=== PATIENT | male | born 1990 | race Caucasian/White ===

== ENCOUNTER → 2016-10-14 | Outpatient (CLI) | payer OTHER | END | disposition home or self-care (01) | LOC: C.RDSM 08:00 | PROVIDERS: ATTEND Physical Medicine & Rehabilitation Sports Medicine | DX: S52.134A Nondisplaced fracture of neck of right radius, initial encounter for closed fracture (principal); X58.XXXA Exposure to other specified factors, initial encounter ==

== ENCOUNTER 2020-04-18 13:13 | Observation (INO) ==
[2020-04-18 13:40] LABS: Basophils # (auto) 0.02 K/uL (0-0.2); Basophils % (auto) 0.2 %; Eosinophils # (auto) 0.02 K/uL (0-0.5); Eosinophils % (auto) 0.2 %; Hematocrit (blood only) 40.5 % (42-52); Hemoglobin 14.4 g/dL (14.0-18.0); Immature Granulocytes # (auto) 0.03 K/uL (0.00-0.02); Immature Granulocytes % (auto) 0.2 %; Lymphocytes # (auto) 1.86 K/uL (1.2-3.4); Lymphocytes % (auto) 14.2 %; Mean Corpuscular Hemoglobin 30.6 pg (25-34); Mean Corpuscular Hgb Conc 35.6 g/dL (32-36); Mean Corpuscular Volume 86.2 fL (80-100); Mean Platelet Volume 11.1 fL (7.4-10.4); Monocytes # (auto) 1.19 K/uL (0.11-0.59); Monocytes % (auto) 9.1 %; Neutrophils # (auto) 9.98 K/uL (1.4-6.5); Neutrophils % (auto) 76.1 %; Platelet Count 241 K/uL (130-400); RDW Coefficient of Variation 12.2 % (11.5-14.5); RDW Standard Deviation 38.7 fL (36.4-46.3)
[2020-04-18] MEDS ORDERED: ONDANSETRON INJ 2 MG/ML 2 ML VIAL IV STA (13:48)
[2020-04-18] MEDS ORDERED: MoRPHine SULFATE 4 MG/ML 1 ML CARP\\VIAL IV STA (13:48)
[2020-04-18] MEDS ORDERED: SODIUM CHLORIDE 0.9% 1000ML 2,000 ML IV ONE (13:48)
[2020-04-18 13:57] LABS: Albumin Level 4.1 gm/dl (3.4-5.0); BUN Creatinine Ratio 11.7 (10-20); Calcium 9.1 mg/dl (8.5-10.1); Creatinine Clr Calc Pharmacy 145.3 ml/min; Est GFR (African American) 135.5; Est GFR (Non-African American) 116.9; Potassium 3.4 mmol/L (3.5-5.1)
[2020-04-18 14:00] LABS: Albumin Globulin Ratio 1.1 (0.9-2); Bilirubin,Total 0.9 mg/dl (0.2-1); Globulin 3.9 gm/dl (2.5-4.0)
--- NOTE | 2020-04-18 14:16 | Emergency Department Note ---
Impression & Plan Abdominal pain, Acute appendicitis ED Provider Note NAME: ALCIDES MENDEZ AGE: 29 SEX: M : 1990 ARRIVES VIA: Walk-In INFORMANT: Patient ED PROVIDER(S): Adan Wilkins DO CHIEF COMPLAINT: abdominal pain HPI: Patient is a 21-year-old male who presents to the ER for right lower quadrant abdominal pain. He initially complained of epigastric abdominal pain b ut on palpation and when he pushes on his belly it is in the right lower quadrant. He admits to nausea. Eating and drinking makes it worse. Denies any chest pain or shortness of breath. No dysuria, urgency or frequency. No previous abdominal surgeries. No other exacerbating or remitting factors. ROS: See above HPI for pertinent positives & negatives. A total of 10 systems reviewed and were otherwise negative. PAST MEDICAL HISTORY:See Below PAST SURGICAL HISTORY:See Below FAMILY HISTORY:See Below SOCIAL HISTORY:See Below HOME MEDICATIONS:See Below ALLERGIES:See Below VITALS:See Below PHYSICAL EXAMINATION: GENERAL: Sitting up in bed, alert, well appearing, well nourished, no distress, non-toxic EYE EXAM: normal conjunctiva. OROPHARYNX: no exudate, no erythema, lips, buccal mucosa, and tongue normal and mucous membranes are moist NECK: supple, no nuchal rigidity, no adenopathy, non-tender LUNGS: Clear to auscultation. Normal chest wall mechanics HEART: no murmurs, S1 normal and S2 normal ABDOMEN: abdomen soft, tender palpation in right lower quadrant, normo-active bowel sounds, no masses, no rebound or guarding. UPPER EXTREMITIES: upper extremities are grossly normal. LOWER EXTREMITIES: No pitting edema. NEURO EXAM: Normal sensorium, cranial nerves II-XII grossly intact, normal speech, no gross weakness of arms, no gross weakness of legs. MEDICAL DECISION MAKING: Patient is a 29-year-old male who presents the ER for abdominal pain he comp lains of epigastric pain. On exam he is tender acutely in the right lower quadrant. Vitals were stable IV was established blood work obtained. Labs show leukocytosis of 13,000. No significant anemia. BMP with mild hypokalemia. LFTs bilirubin and lipase was unremarkable. UA was negative. Covid was negative. CT abdomen pelvis shows acute appendicitis. He was given IV cefoxitin. Discussed with general surgery and admitted and taken to the ER. Triage Nursing notes reviewed. Prior medical records reviewed Vital Signs: reviewed and remarkable for tachy Differential diagnosis: Differential diagnoses includes but is not limited to gastritis, peptic ulcer disease, GERD, gallbladder disease, pancreatitis, small bowel obstruction, acute coronary syndrome, pericarditis, ischemic bowel, irritable bowel disease, irritable bowel syndrome, appendicitis, diverticulitis, malignancy, hernia, urinary tract infection, torsion, perforation, trauma, infectious. ER treatment provided: See below Diagnostics interpreted by me: ECG: none Cardiac Monitoring: An order was placed for continuous cardiac monitoring. The monitor shows a rate of 94 with sinus rhythm. Laboratory studies: As stated above and show below. Imaging studies: CT abdomen pelvis shows acute appendicitis Consultation(s): Discussed with Myla from general surgery who evaluated and admitted the patient ED COURSE: Procedures: none Critical Care: None Past Med/Surg History Social History Smoking Status: Current some day smoker Tobacco Type: Cigarettes Feels Safe at Home: Yes Allergies Allergies Allergy/AdvReac Type Severity Reaction Status Date / Time No Known Allergies Allergy Verified 04/18/20 15:41 Home Meds Home Medications Medication Instructions Recorded Confirmed coenzyme Q10 [Co Q-10] 200 mg PO QAM 04/18/20 04/18/20 magnesium oxide 400 mg PO QAM 04/18/20 04/18/20 riboflavin (vitamin B2) 400 mg PO QAM 04/18/20 04/18/20 Results & Data (ED) Vital Signs Vital Signs - 24 hr 04/18/20 13:19 04/18/20 16:24 04/18/20 16:37 Temperature 37.0 C 36.9 C Temperature Source Skin Oral Pulse Rate 110 H Pulse Rate [Apical] 94 H Pulse Rhythm [Apical] Regular Respiratory Rate 20 18 Respiratory Effort / Characteristics Non-Labored Non-Labored Spontaneous Respiratory Depth Normal Normal Respiratory Pattern Regular Blood Pressure 134/84 Blood Pressure [Left Arm] 143/70 H Blood Pressure Mean 100 Blood Pressure Mean [Left Arm] 94 Blood Pressure Position [Left Arm] Semi-fowlers Pulse Oximetry 98 99 Oxygen Delivery Method Room Air Room Air Sepsis Recent Fever Within 48 Hours No Sepsis New/Unexplained Change in Mental Status N/A Sepsis Action Taken by Nursing No Action Required Laboratory Data Result diagrams: 04/18/20 13:30 04/18/20 13:30 Lab Results 04/18/20 04/18/20 04/18/20 Range/Units 13:30 13:30 14:10 WBC 13.10 H (4.8-10.8) K/uL RBC 4.70 (4.7-6.1) M/uL Hgb 14.4 (14.0-18.0) g/dL Hct 40.5 L (42-52) % MCV 86.2 (80-100) fL MCH 30.6 (25-34) pg MCHC 35.6 (32-36) g/dL RDW Std Deviation 38.7 (36.4-46.3) fL RDW Coeff of [place] 12.2 (11.5-14.5) % Plt Count 241 (130-400) K/uL MPV 11.1 H (7.4-10.4) fL Immature Gran % (Auto) 0.2 % Neut % (Auto) 76.1 % Lymph % (Auto) 14.2 % [place] % (Auto) 9.1 % Eos % (Auto) 0.2 % Baso % (Auto) 0.2 % Neut # (Auto) 9.98 H (1.4-6.5) K/uL Lymph # (Auto) 1.86 (1.2-3.4) K/uL [place] # (Auto) 1.19 H (0.11-0.59) K/uL Eos # (Auto) 0.02 (0-0.5) K/uL Baso # (Auto) 0.02 (0-0.2) K/uL Immature Gran # (Auto) 0.03 H (0.00-0.02) K/uL Sodium 138 (136-145) mmol/L Potassium 3.4 L (3.5-5.1) mmol/L Chloride 104 (98-107) mmol/L Carbon Dioxide 29 (21-32) mmol/L Anion Gap 5.0 (3-11) BUN 10 (7-18) mg/dl Creatinine 0.88 (0.6-1.4) mg/dl Est Cr Clr Drug Dosing 145.3 ml/min Est GFR ( Amer) 135.5 Est GFR (Non-Af Amer) 116.9 BUN/Creatinine Ratio 11.7 (10-20) Glucose 101 H (70-99) mg/dl Calcium 9.1 (8.5-10.1) mg/dl Total Bilirubin 0.9 (0.2-1) mg/dl AST 16 (15-37) U/L ALT 20 (12-78) U/L Alkaline Phosphatase 77 (45-117) U/L Total Protein 8.0 (6.4-8.2) gm/dl Albumin 4.1 (3.4-5.0) gm/dl Globulin 3.9 (2.5-4.0) gm/dl Albumin/Globulin Ratio 1.1 (0.9-2) Lipase 90 (73-393) U/L Urine Color Yellow Urine Appearance Clear (Clear) Urine pH 7.5 (4.5-7.5) Ur Specific [place] 1.016 (1.000-1.030) Urine Protein Negative (Negative) Urine Glucose (UA) Negative (Negative) Urine Ketones Negative (Negative) Urine Blood Negative (Negative) Urine Nitrite Negative (Negative) Urine Bilirubin Negative (Negative) Urine Urobilinogen Negative (Negative) Ur Leukocyte Esterase Negative (Negative) COVID-19 Eval Order SARS-CoV-2, RNA, NAAT (NEGATIVE) 04/18/20 04/18/20 Range/Units 15:52 15:52 WBC (4.8-10.8) K/uL RBC (4.7-6.1) M/uL Hgb (14.0-18.0) g/dL Hct (42-52) % MCV (80-100) fL MCH (25-34) pg MCHC (32-36) g/dL RDW Std Deviation (36.4-46.3) fL RDW Coeff of [place] (11.5-14.5) % Plt Count (130-400) K/uL MPV (7.4-10.4) fL Immature Gran % (Auto) % Neut % (Auto) % Lymph % (Auto) % [place] % (Auto) % Eos % (Auto) % Baso % (Auto) % Neut # (Auto) (1.4-6.5) K/uL Lymph # (Auto) (1.2-3.4) K/uL [place] # (Auto) (0.11-0.59) K/uL Eos # (Auto) (0-0.5) K/uL Baso # (Auto) (0-0.2) K/uL Immature Gran # (Auto) (0.00-0.02) K/uL Sodium (136-145) mmol/L Potassium (3.5-5.1) mmol/L Chloride (98-107) mmol/L Carbon Dioxide (21-32) mmol/L Anion Gap (3-11) BUN (7-18) mg/dl Creatinine (0.6-1.4) mg/dl Est Cr Clr Drug Dosing ml/min Est GFR ( Amer) Est GFR (Non-Af Amer) BUN/Creatinine Ratio (10-20) Glucose (70-99) mg/dl Calcium (8.5-10.1) mg/dl Total Bilirubin (0.2-1) mg/dl AST (15-37) U/L ALT (12-78) U/L Alkaline Phosphatase (45-117) U/L Total Protein (6.4-8.2) gm/dl Albumin (3.4-5.0) gm/dl Globulin (2.5-4.0) gm/dl Albumin/Globulin Ratio (0.9-2) Lipase (73-393) U/L Urine Color Urine Appearance (Clear) Urine pH (4.5-7.5) Ur Specific [place] (1.000-1.030) Urine Protein (Negative) Urine Glucose (UA) (Negative) Urine Ketones (Negative) Urine Blood (Negative) Urine Nitrite (Negative) Urine Bilirubin (Negative) Urine Urobilinogen (Negative) Ur Leukocyte Esterase (Negative) COVID-19 Eval Order Covid[address] [facility] SARS-CoV-2, RNA, NAAT NEGATIVE (NEGATIVE) Administered Medications Discontinued Medications Sodium Chloride (Nss 1000ml) 2,000 mls @ 999 mls/hr IV .Q2H1M ONE Stop: 04/18/20 15:48 Last Infusion: 04/18/20 16:29 Dose: 0 mls/hr Documented by: [id number] Admin: 04/18/20 14:27 Dose: 999 mls/hr Documented by: [id number] Cefoxitin Sodium (Mefoxin) 2,000 mg in 60 mls @ 100 mls/hr IV NOW STA Stop: 04/18/20 15:36 Last Admin: 04/18/20 16:04 Dose: 100 mls/hr Documented by: [id number] Ioversol (Ioversol 100ml) 93 ml IV ONCE ONE Stop: 04/18/20 14:48 Last Admin: 04/18/20 14:47 Dose: 93 ml Documented by: [id number] Morphine Sulfate (Morphine Sulfate 4 Mg/Ml 1 Ml Carp\Vial) 4 mg IV NOW STA Stop: 04/18/20 13:49 Last Admin: 04/18/20 14:27 Dose: 4 mg Documented by: [id number] Ondansetron HCl (Ondansetron Inj 2 Mg/Ml 2 Ml Vial) 4 mg IV NOW STA Stop: 04/18/20 13:49 Last Admin: 04/18/20 14:27 Dose: 4 mg Documented by: [id number] Discharge Plan Visit Data Chief Complaint: Abdominal Pain Stated Complaint: SEVERE ABD PAIN ED Provider: Adan Wilkins Discharge Problem: Abdominal pain, Acute appendicitis Patient Disposition: Being Evaluated by Surgeon Discharge Instructions Interventions: ED Discharge Assessment Last Done: 04/18/20 16:24 Discharge Problem: Abdominal pain Qualifiers: Abdominal location: unspecified location Qualified Code(s): R10.9 - Unspecified abdominal pain Acute appendicitis Qualifiers: Acute appendicitis type: with localized peritonitis Appendicitis gangrene presence: unspecified whether gangrene present Appendicitis perforation presence: unspecified whether perforation present Appendicitis abscess presence: unspecified whether abscess present Qualified Code(s): K35.30 - Acute appendicitis with localized peritonitis, without perforation or gangrene
[2020-04-18 14:36] LABS: Appearance Urine Clear (Clear); Bilirubin Urine Negative (Negative); Blood Urine Negative (Negative); Color Urine Yellow; Glucose Urine UA Negative (Negative); Ketones Urine Negative (Negative); Leukocyte Esterase Urine Negative (Negative); Nitrite Urine Negative (Negative); Protein Urine Negative (Negative); Specific Gravity Urine 1.016 (1.000-1.030); Urobilinogen Urine Negative (Negative); pH Urine 7.5 (4.5-7.5)
[2020-04-18] MEDS ORDERED: OPTIRAY 320 100ml IV ONE (14:47)
--- NOTE | 2020-04-18 14:57 | CT Scan Report ---
CT OF THE ABDOMEN AND PELVIS WITH CONTRAST CLINICAL HISTORY: Right lower quadrant abdominal pain. COMPARISON STUDY: None. TECHNIQUE: Following IV administration of 93 mL of Optiray-320, axial images of the abdomen and pelvi s were obtained from the lung bases to the proximal femurs. Images were reviewed in the axial, sagitt al, and coronal planes. IV contrast was administered without complication. Automated exposure contro l was utilized for the study. A dose lowering technique was utilized adhering to the principles of A ABIMBOLA. CT DOSE: 310.70 mGy.cm FINDINGS: Lung bases are unremarkable. No pneumatosis, free air or portal venous gas is present. The liver, spleen, adrenal glands, kidneys and pancreas are normal. There is no biliary or pancreatic maida ana lilia dilatation. There is no peripancreatic or pericholecystic infiltration. No hydronephrosis is pres ent. The appendix is dilated and fluid-filled. The appendix measures 1.3 cm in caliber. There is mode rate periappendiceal infiltration. There is no free air or abscess. Note is made of an 8 mm appendico lith. A small amount of fluid within the pelvis is noted. There is no rim-enhancing fluid collection to suggest abscess. Major vasculature is patent. IMPRESSION: Findings consistent with acute appendicitis. Fluid-filled dilated retrocecal appendix which contains an appendicolith. Moderate periappendiceal infiltration. No free air or abscess. Small amount of flui d within the pelvis. ACT 112: Negative or not required by law. Electronically signed by: Loki Bey M.D. 04/18/2020 2:55 PM
[2020-04-18] MEDS ORDERED: cefOXitin 2,000 MG/60 ML BAG IV STA (15:01)
--- NOTE | 2020-04-18 15:16 | History & Physical Report ---
Date of Service April 18, 2020 Assessment & Plan (1) Acute appendicitis: This is a 29y M with no significant PMH who presents to the [facility] ED on 04/18/20 with complaints of abdominal pain. Workup in the ED with a CT a/p revealed findings concerning for acute appendicitis, fluid-filled dilated retrocecal appendix which contains an appendicolith, moderate periappendiceal infiltration, without evidence of free air or abscess. WBC 13, patient tachycardic to 110. On examination patient ttp in the RLQ. We will plan to take the patient to the OR for a laparoscopic appendectomy. Start on preop abx and keep npo. Covid testing ordered. Dr. Mancini will obtain surgical consent. History of Present Illness Primary Care Provider: [facility] This is a 29y M with no significant PMH who presents to the [facility] ED on 04/18/20 with complaints of abdominal pain. Patient reports his pain started a couple days ago, but was generalized abdominal discomfort. He had oral surgery a little over a week ago and says he was eating his food differently and thought that was maybe the reasoning for his pain. Yesterday the patient drank some egg-nog and ended up vomiting, having chills, and abdominal bloating. He reports being up all night in pain, prompting him to come in to the ER today for further workup. A CT a/p was obtained that revealed findings consistent with acute appendicitis. WBC 13 and patient tachycardic. He reports when pressed upon his pain is located more in the RLQ. After receiving pain medication he rates his pain a 5-6/10, but without it it was about an 8/10. He states he has felt feverish but has not taken his temp and has constipation. He denies any prior abdominal surgical history. Allergies Allergy/AdvReac Type Severity Reaction Status Date / Time No Known Allergies Allergy Verified 04/18/20 15:41 Home Medications Medication Instructions Recorded Confirmed Type coenzyme Q10 [Co Q-10] 200 mg PO QAM 04/18/20 04/18/20 History magnesium oxide 400 mg PO QAM 04/18/20 04/18/20 History riboflavin (vitamin B2) 400 mg PO QAM 04/18/20 04/18/20 History Past Med/Surg History Social History Smoking Status: Current some day smoker Tobacco Type: Cigarettes Feels Safe at Home: Yes Review of Systems Constitutional: + chills feeling feverish Respiratory: no dyspnea Cardiovascular: no chest pain Gastrointestinal: + abdominal pain (generalized abd pain, RLQ ), + bloating, + nausea, + vomiting and + constipation Physical Exam Physical Exam: awake/alert Constitutional: well developed and well nourished; no acute distress Respiratory: normal respiratory effort Cardiovascular: Rate/Rhythm: + tachycardic Gastrointestinal (Abdomen): Inspection/Auscultation: + abdomen distended (mild) Percussion/Palpation: + abdomen tender (ttp RLQ, + kehrs sign) and abdomen soft Skin: no rashes, warm and dry Psychiatric: A+Ox3, euthymic affect Results & Data Results & Data ([facility]) Vital Signs (Past 12 Hours) Vital Signs Temp Pulse Resp BP Pulse Ox 04/18/20 13:19 37.0 C 110 H 20 134/[address] OF THE ABDOMEN AND PELVIS WITH CONTRAST CLINICAL HISTORY: Right lower quadrant abdominal pain. COMPARISON STUDY: None. TECHNIQUE: Following IV administration of 93 mL of Optiray-320, axial images of the abdomen and pelvis were obtained from the lung bases to the proximal femurs. Images were reviewed in the axial, sagittal, and coronal planes. IV contrast was administered without complication. Automated exposure control was utilized for the study. A dose lowering technique was utilized adhering to the principles of ALARA. CT DOSE: 310.70 mGy.cm FINDINGS: Lung bases are unremarkable. No pneumatosis, free air or portal venous gas is present. The liver, spleen, adrenal glands, kidneys and pancreas are normal. There is no biliary or pancreatic ductal dilatation. There is no peripancreatic or pericholecystic infiltration. No hydronephrosis is present. The appendix is dilated and fluid-filled. The appendix measures 1.3 cm in caliber. There is moderate periappendiceal infiltration. There is no free air or abscess. Note is made of an 8 mm appendicolith. A small amount of fluid within the pelvis is noted. There is no rim-enhancing fluid collection to suggest abscess. Major vasculature is patent. IMPRESSION: Findings consistent with acute appendicitis. Fluid-filled dilated retrocecal appendix which contains an appendicolith. Moderate periappendiceal infiltration. No free air or abscess. Small amount of fluid within the pelvis. ACT 112: Negative or not required by law. Electronically signed by: Loki Bey M.D. 04/18/2020 2:55 PM Supervising Physician Co-Signing Physician Notes I personally saw and evaluated the patient with Myla Mccullough PA-C and agree with the assessment and plan. 29 yo male with acute appendicitis -Keep NPO -IVF -To OR today for laparoscopic appendectomy, possible open -Consent obtained, risks discussed including bleeding, infection, leak, abscess PG Care Time/CCT Total # of Minutes Spent Total Time Spent with Patient: Total time spent is greater than 50% in coordination of care (as documented) at patient's floor/unit and/or counseling patient: Coding Level of Care Code 66171 OBS Care - Level 3 Diagnoses Acute appendicitis K35.80
[2020-04-18] MEDS ORDERED: NEOSTIGMINE METHYLSULFATE 5 MG/5 ML SYR ONE (15:30)
[2020-04-18] MEDS ORDERED: fentaNYL citrate 100 MCG/2 ML VIAL ONE (15:30)
[2020-04-18] MEDS ORDERED: ONDANSETRON INJ 2 MG/ML 2 ML VIAL ONE (15:30)
[2020-04-18] MEDS ORDERED: PROPOFOL IV EMULSION 10 MG/ML 20 ML VIAL IV ONE (15:30)
[2020-04-18] MEDS ORDERED: GLYCOPYRROLATE 0.2 MG/ML VIAL ONE (15:30)
[2020-04-18] MEDS ORDERED: LIDOCAINE HCL 2% 2 ML VIAL/AMP(20MG/ML) INFIL ONE (15:30)
[2020-04-18] MEDS ORDERED: MIDAZOLAM HCL 1 MG/ML 2ML VIAL ONE (15:30)
[2020-04-18] MEDS ORDERED: DEXAMETHASONE SOD INJ 4 MG/ML VIAL ONE (15:30)
[2020-04-18] MEDS ORDERED: BUPIVACAINE/EPINEPHRINE 0.5% MPF 1:200,000 30 ML VIAL ONE (15:38)
--- NOTE | 2020-04-18 16:52 | Anesthesiology Consultation ---
Date of Service April 18, 2020 Assessment & Plan Chart Review Chart Review: Acceptable Risk for Surgery Consults Requested none History Surgery Operation Date: 04/18/20 11:25 Proposed Procedures p Laparoscopic Appendectomy - Rafa Mancini DO Height/Weight Height: 6 ft 2 in Weight: 83.1 kg Allergies Allergy/AdvReac Type Severity Reaction Status Date / Time No Known Allergies Allergy Verified 04/18/20 15:41 Medications Home Medications Medication Instructions Recorded Confirmed Last Taken coenzyme Q10 [Co Q-10] 200 mg PO QAM 04/18/20 04/18/20 04/17/20 magnesium oxide 400 mg PO QAM 04/18/20 04/18/20 04/17/20 riboflavin (vitamin B2) 400 mg PO QAM 04/18/20 04/18/20 04/17/20 NPO Date Last Intake of Fluids: 04/17/20 Time Last Intake of Fluids: 21:30 Last Intake of Fluids Comment: sips of water 1330 Date Last Intake of Solids: 04/17/20 Time Last Intake of Solids: 21:00 Social History Smoking Status: Current some day smoker Physical Exam Vital Signs Last Vital Signs Temp 36.9 C 04/18/20 16:37 Pulse 94 H 04/18/20 16:37 Resp 18 04/18/20 16:37 BP 143/70 H 04/18/20 16:37 Pulse Ox 99 04/18/20 16:37 Testing Laboratory Results 04/18/20 13:30 04/18/20 13:30 Urine Color Yellow 04/18/20 14:10 Urine Appearance Clear (Clear) 04/18/20 14:10 Urine pH 7.5 (4.5-7.5) 04/18/20 14:10 Ur Specific [place] 1.016 (1.000-1.030) 04/18/20 14:10 Urine Protein Negative (Negative) 04/18/20 14:10 Urine Glucose (UA) Negative (Negative) 04/18/20 14:10 Urine Ketones Negative (Negative) 04/18/20 14:10 Urine Nitrite Negative (Negative) 04/18/20 14:10 Ur Leukocyte Esterase Negative (Negative) 04/18/20 14:10
[2020-04-18] MEDS ORDERED: PROMETHAZINE HCL 12.5 MG in SODIUM CHLORIDE 0.9% 50 ML IV PRN (16:53)
[2020-04-18] MEDS ORDERED: HYDROmorphone INJ 2 MG/ML SYR/VIAL IV PRN (16:53)
[2020-04-18] MEDS ORDERED: ePHEDrine sulfate 50 MG/ML AMP IV PRN (16:53)
[2020-04-18] MEDS ORDERED: ATROPINE SULFATE 0.1 MG/ML 10ML SYR IV PRN (16:53)
[2020-04-18] MEDS ORDERED: ONDANSETRON INJ 2 MG/ML 2 ML VIAL IV PRN ×2 (16:53→17:40)
[2020-04-18] MEDS ORDERED: fentaNYL citrate 100 MCG/2 ML VIAL IV PRN (16:53)
[2020-04-18] MEDS ORDERED: METOCLOPRAMIDE HCL INJ 5 MG/ML 2 ML VIAL IV PRN (16:53)
[2020-04-18] MEDS ORDERED: ARTIFICIAL TEARS OP OINT 3.5 GM TUBE ONE (17:03)
[2020-04-18] MEDS ORDERED: KETOROLAC 30 MG/ML VIAL ONE (17:37)
[2020-04-18] MEDS ORDERED: ROCURONIUM BROMIDE 10 MG/ML 5 ML VIAL IV ONE (17:37)
[2020-04-18] MEDS ORDERED: MoRPHine SULFATE 2 MG/ML CARP IV PRN (17:40)
[2020-04-18] MEDS ORDERED: MoRPHine SULFATE 4 MG/ML 1 ML CARP\\VIAL IV PRN (17:40)
[2020-04-18] MEDS ORDERED: oxyCODONE/ACETAMINOPHEN 5mg/325mg TAB PO PRN ×2 (17:40)
[2020-04-18] MEDS ORDERED: SODIUM CHLORIDE 0.9% 1000ML 1,000 ML IV SCH (17:45)
--- NOTE | 2020-04-18 17:56 | Post Operative Brief Note ---
PG Immediate Post Op with CF Date of Surgery April 18, 2020 Pre & Post Diagnosis Operation Date: 04/18/20 11:25 Pre-Op Diagnosis: Acute appendicitis Post-Op Diagnosis: Acute appendicitis without perforation I identified the patient and participated in the time-out.: Yes Procedure Operation Date: 04/18/20 11:25 Actual Procedures p Laparoscopic Appendectomy(Not Applicable) - Rafa Mancini DO Surgeon Rafa Mancini DO Microcomputer Technician Aristeo Verde PA-C Estimated Blood Loss 5 Findings See Below Inflamed, dilated, edematous appendix without perforation Specimens Specimen Description: A. Appendix Drains David Catheter Anesthesia Type General Complications none Disposition Disposition: Recovery Room
--- NOTE | 2020-04-18 17:59 | Operative Report ---
PG Post Operative Report Pre & Post Diagnosis Operation Date: 04/18/20 11:25 Pre-Op Diagnosis: Acute appendicitis Post-Op Diagnosis: Acute appendicitis without perforation I identified the patient and participated in the time-out.: Yes Procedure Operation Date: 04/18/20 11:25 Actual Procedures p Laparoscopic Appendectomy(Not Applicable) - Rafa Mancini DO Surgeon Rafa Mancini DO Utility Worker Production Aristeo Verde PA-C Estimated Blood Loss 5 Findings See Below Inflamed, dilated, edematous appendix with small amount of pericecal and pelvic purulent fluid Fluids see anesthesia record Specimens Appendix to pathology Drains None Anesthesia Type General Complications none Disposition Disposition: Recovery Room Indications 29 yo male with clinical and CT evidence of acute appendicitis Description of Procedure The patient was brought to the OR and placed in the supine position and SCD's placed. At this time he underwent general endotracheal anesthesia without incident. At this time a David catheter was placed under sterile conditions. His abdomen was prepped and draped in the usual sterile fashion. He was given appropriate pre-operative antibiotics. A timeout was called, the procedure was verified as Laparoscopic appendectomy, possible open. Surgical, anesthesia and nursing teams agreed and the procedure was begun. After injection of 0.25% Marcaine with epinephrine, a supraumbilical incision was made using a #11 blade scalpel and carried down to the fascia with a hemostat. The abdomen was then elevated with towel clamps and entered using the Veress needle confirming position using the saline drop test. Pneumoperitoneum was established and 5mm trocar was placed. Laparoscope was introduced. No injury was seen from our entrance to the abdomen. At this time a 5mm suprapubic port and 12mm LLQ port were placed under direct visualization. The patient was placed in Trendelenburg and rotated to the left. At this time the appendix was visualized and the appendix was freed bluntly from a retrocecal position and elevated toward the abdominal wall. The appendix appeared inflamed, dilated and edematous. A window was created in the mesoappendix at the base of the appendix. A 45mm purple load stapler was then fired across the base of the appendix which appeared healthy. The mesoappendix was then taken using Harmonic device. The appendix was then placed in an Endocatch bag and removed through the LLQ port site. Staple line was inspected and was intact. Hemostasis was complete. A small amount of purulent fluid was suctioned out of the RLQ and pelvis. The 12 mm port was then closed at the fascial level using a 0 Vicryl suture using the suture passer. All ports were removed under direct visualization and no bleeding was noted. The abdomen was desufflated and the skin was closed using 4-0 Monocryl in a subcuticular fashion. Sterile dressings were applied. David catheter was removed. The patient was then awakened from anesthesia having remained stable throughout the entire case and transported to PACU. All needle and sponge counts were correct x 2. The physician's real estate assistant was present and scrubbed for the entirety of the case. He was critical in positioning the patient, prepping and draping, retraction and exposure, driving the laparoscope, closure of the incisions and placement of the dressings. I attest to the content of the Intraoperative Record and any orders documented therein. Any exceptions are noted below.
[2020-04-18] MEDS ORDERED: MEPERIDINE HCL 25 MG/ML CARP/VIAL ONE (18:02)
[2020-04-18] MEDS ORDERED: MEPERIDINE HCL 25 MG/ML CARP/VIAL IV ONE (18:07)
--- NOTE | 2020-04-18 18:27 | Anesthesiology Progress Note ---
Date of Service April 18, 2020 Anesthesia Post Procedure Vital Signs Vital Signs: Temp Pulse Pulse Resp BP BP Pulse Ox 04/18/20 18:20 97 H 18 146/75 H 100 04/18/20 18:10 100 H 14 152/81 H 100 04/18/20 18:01 36.8 C 112 H 21 155/75 H 98 04/18/20 16:37 36.9 C 94 H 18 143/70 H 99 04/18/20 13:19 37.0 C 110 H 20 134/84 98 Transfer of Care Handoff Completed per policy Notes Mental Status: alert / awake / arousable and participated in evaluation Patient Amnestic to Procedure: Yes Nausea / Vomiting: adequately controlled Pain: adequately controlled Airway Patency, RR, SpO2: stable & adequate BP & HR: stable & adequate Hydration State: stable & adequate Anesthetic Complications: no major complications apparent
[2020-04-19] MEDS ORDERED: COUGH DROP (SUGAR FREE) LOZ 24 LOZ/1 BOX BUCCAL PRN (00:14)
--- NOTE | 2020-04-19 06:15 | Surgery Progress Note ---
Date of Service April 19, 2020 Assessment & Plan (1) Acute appendicitis: -Pain control PRN -Encourage ambulation/IS -No need for antibiotics -Regular diet -Can change LLQ dressing prior to discharge -Will d/c home this morning when transportation becomes available Admission and Anticipated Discharge Date Admission Date: April 18, 2020 Subjective Pt seen and examined. Pain controlled. Afebrile. Tolerating diet. Physical Exam Constitutional: WD/WN, vitals as above Gastrointestinal (Abdomen): Percussion/Palpation: + abdomen tender (appropriately ) and abdomen soft Dressing LLQ with sanguinous spotting, no hematoma Results [facility] ([facility] Vital Signs (Past 12 Hours) Vital Signs Temp Pulse Pulse Resp BP Pulse Ox 04/19/20 03:37 37.1 C 80 16 114/65 95 04/18/20 23:17 36.3 C L 78 16 126/74 96 04/18/20 22:59 36.2 C L 78 16 126/76 95 04/18/20 21:49 36.8 C 89 16 127/73 94 04/18/20 20:28 36.9 C 89 16 149/78 H 94 04/18/20 20:00 36.8 C 82 16 125/71 94 04/18/20 19:30 37.3 C 90 16 137/67 94 04/18/20 19:10 96 H 20 138/72 97 04/18/20 19:00 98 H 20 138/72 97 04/18/20 18:50 88 12 141/73 H 96 04/18/20 18:40 37.6 C H 94 H 17 135/70 95 04/18/20 18:30 93 H 18 146/72 H 94 04/18/20 18:20 97 H 18 146/75 H 100 PG Care Time/CCT Total # of Minutes Spent Total Time Spent with Patient: Total time spent is greater than 50% in coordination of care (as documented) at patient's floor/unit and/or counseling patient: Coding Level of Care Code None Diagnoses Acute appendicitis K35.30 Acute appendicitis type: with localized peritonitis Appendicitis abscess presence: unspecified whether abscess present Appendicitis gangrene presence: unspecified whether gangrene present Appendicitis perforation presence: unspecified whether perforation present (1) Acute appendicitis Acute appendicitis type: with localized peritonitis Appendicitis abscess presence: unspecified whether abscess present Appendicitis gangrene presence: unspecified whether gangrene present Appendicitis perforation presence: unspecified whether perforation present Qualified Code(s): K35.30 - Acute appendicitis with localized peritonitis, without perforation or gangrene
--- NOTE | 2020-04-20 10:18 | Discharge Summary ---
Date of Service April 20, 2020 Admission HPI Per Admitting Provider This is a 29y M with no significant PMH who presents to the [facility] on 04/18/20 with complaints of abdominal pain. Patient reports his pain started a couple days ago, but was generalized abdominal discomfort. He had oral surgery a little over a week ago and says he was eating his food differently and thought that was maybe the reasoning for his pain. Yesterday the patient drank some egg-nog and ended up vomiting, having chills, and abdominal bloating. He reports being up all night in pain, prompting him to come in to the ER today for further workup. A CT a/p was obtained that revealed findings consistent with acute appendicitis. WBC 13 and patient tachycardic. He reports when pressed upon his pain is located more in the RLQ. After receiving pain medication he rates his pain a 5-6/10, but without it it was about an 8/10. He states he has felt feverish but has not taken his temp and has constipation. He denies any prior abdominal surgical history. Principal Diagnosis Acute appendicitis Discharge Exam Constitutional WD/WN, vitals as above Gastrointestinal (Abdomen) Inspection/Auscultation: abdomen not distended Percussion/Palpation: + abdomen tender (appropriately TTP) and abdomen soft; no guarding and abdomen not rigid Discharge Data Allergies Allergy/AdvReac Type Severity Reaction Status Date / Time No Known Allergies Allergy Verified 04/18/20 15:41 Consultations 04/18/20 15:00 ED Decision to Admit Stat Procedures Performed Operation Date: 04/18/20 11:25 Actual Procedures p Laparoscopic Appendectomy(Not Applicable) - Rafa Mancini DO Ordered Studies 04/18/20 13:48 CT abd pelvis IV con only Stat Hospital Course (1) Acute appendicitis: Patient was admitted with acute appendicitis. He was given appropriate IV ABX and then taken to the OR for laparoscopic appendectomy which he tolerated well. Post-operatively he was tolerating a diet, ambulating without difficulty, and pain controlled on PO medications and stable for discharge home. Total Time Total Time Spent Total Time Spent (In Minutes): 20 Discharge Plan Discharge Items Patient Disposition: Home - Self-Care Reason For Visit: APPENDECTOMY Discharge Diagnosis: appendectomy Activity: As commented below Lifting: No more than 10 pounds Bathing Comment: can shower; no soaking in tubs/pools Exercise/Sports: Wait until after follow-up appointment Driving/Machine Use: do not resume driving while taking narcotics for pain Non-emergency contact: Surgeon Call non-emergency contact if: you have any medication questions, you have a fever, your temperature is above 101.5 and your wound has increased redness Follow-up/Referrals: Rafa Mancini, [Physician] - 05/02/20 3:00 pm [facility] [Primary Care Provider] - Diet: Regular Addtl Attending Provider Instructions: Pending Studies at Discharge: No Stand-Alone Forms: Anesthesia/Sedation, Adult, [facility], Opioid Pain Management Medications and DC Order Prescriptions: New oxycodone-acetaminophen [Percocet] 5-325 mg tablet 1 - 2 tab PO Q4H PRN (Reason: pain, initial therapy, max 6 daily) Qty: 15 RF: 0 Continued coenzyme Q10 [Co Q-10] 200 mg Capsule 200 mg PO QAM RF: 0 magnesium oxide 400 mg magnesium Capsule 400 mg PO QAM RF: 0 riboflavin (vitamin B2) 400 mg Tablet 400 mg PO QAM RF: 0 Discharge Orders: Discharge Order (Routine); Ordered 04/19/20 Ordered By: Myla Duran/Other Patient Handouts: DVT Post Op Prevention Admission Data Admit Date/Time: 04/18/20 19:05 Attending Provider: Rafa Mancini Admit Provider: Rafa Mancini Primary Care Provider: [facility] Other Providers: Myla Mccullough Other Interventions: Discharge Summary Assessment (RN) Last Done: 04/19/20 08:36 Coding Level of Care Code 00043 OBS Care - Discharge Diagnoses Acute appendicitis K35.30 Acute appendicitis type: with localized peritonitis Appendicitis abscess presence: unspecified whether abscess present Appendicitis gangrene presence: unspecified whether gangrene present Appendicitis perforation presence: unspecified whether perforation present
== END 2020-04-19 13:29 | disposition home or self-care (01) ==
LOC: ED 13:13 → ASU 16:21 → 3N 16:21

== ENCOUNTER 2021-10-26 11:27 | Inpatient (IN) ==
--- NOTE | 2021-10-26 11:46 | CT Scan Report ---
CT head/brain wo con CLINICAL HISTORY: 31 years-old Male with Stroke Alert. Acute strokelike symptoms TECHNIQUE: Multiple axial CT images of the head were obtained without contrast. A dose lowering tech nique was utilized adhering to the principles of ALARA. CT DOSE: 614.27 mGy.cm COMPARISON: None. FINDINGS: No acute intracranial hemorrhage, midline shift, intracranial mass, hydrocephalus, territorial ischem ia or abnormal extra-axial collection. The calvarium is intact. The paranasal sinuses, mastoid air cells, and middle ear cavities are clear . IMPRESSION: No acute intracranial abnormality. ACT 112: Negative or not required by law. The above report was generated using voice recognition software. It may contain grammatical, syntax o r spelling errors. Electronically signed by: Margarito Valentino M.D. 10/26/2021 11:45 AM
[2021-10-26] MEDS ORDERED: GLUCOSE 40% GEL 15 GM TUBE PO STA (11:50)
[2021-10-26] MEDS ORDERED: GLUCOSE 40% GEL 15 GM TUBE PO ONE (11:51)
--- NOTE | 2021-10-26 12:04 | Emergency Department Note ---
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 The patient states that he was in the kitchen at approximately 10:30 AM today. He started to feel lightheaded and felt weak, incoordinated and numb on the right side of his body. He lowered himself down to the ground and ate a fig beatty cookie. He did not have anything to eat prior to that. He crawled over to his and told her his symptoms. She assisted him to the bed and took his blood pressure which appeared to be normal. He continues to have symptoms. He is able to walk but he is limping. He has had no difficulty with his vision, speech or mentation. He is right-hand dominant. He has no left-sided symptoms. He denies any recent fever, headache, cough or cold symptoms, chest discomfort or pain, shortness of breath, abdominal pain, vomiting, diarrhea or urinary symptoms. He is not on any blood thinners other than aspirin. Home Medications Medication Instructions Recorded Confirmed Type amoxicillin 500 mg capsule 2,000 mg PO .COMPLEX #30 cap 09/09/20 10/26/21 Rx aspirin 81 mg tablet,delayed 81 mg PO QAM 10/18/20 10/26/21 History release metoprolol succinate 50 mg 25 mg PO QAM 01/30/21 10/26/21 History tablet,extended release 24 hr cholestyramine (with sugar) 4 gram 4 g PO DAILY #60 ea 07/22/21 10/26/21 Rx powder for susp in a packet Allergies Allergy/AdvReac Type Severity Reaction Status Date / Time No Known Allergies Allergy Verified 07/22/21 15:46 Past Med/Surg History Medical History Anxiety Astigmatism of left eye Irritable bowel syndrome Migraine Mitral regurgitation Mitral valve prolapse Nonsustained ventricular tachycardia Scoliosis Surgical History History of laparoscopic appendectomy (04/18/20) Laparoscopic Appendectomy Dr. Mancini 04/18/2020 History of mandibular surgery "upper jaw expanded" History of transesophageal echocardiography (DENY) (~06/08/20) History of wisdom tooth extraction S/P mitral valve repair (~08/2020) @ [facility]--follows with Dr. 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 and A total of 10 systems reviewed and were otherwise negative Physical Exam Vital Signs Vital Signs - 24 hr 10/26/21 11:32 10/26/21 11:45 10/26/21 12:17 Temperature 36.8 C Temperature Source Temporal Artery Scan Pulse Rate 87 Pulse Rate [Apical] 89 Respiratory Rate 16 18 Respiratory Depth Normal Blood Pressure 133/84 Blood Pressure [Left Arm] 147/80 H Blood Pressure Mean 100 Blood Pressure Mean [Left Arm] 102 Pulse Oximetry 97 98 Oxygen Delivery Method Room Air Room Air Room Air Sepsis Recent Fever Within 48 Hours No Sepsis New/Unexplained Change in Mental Status No Sepsis Action Taken by Nursing No Action Required 10/26/21 12:47 Temperature Temperature Source Pulse Rate Pulse Rate [Apical] 82 Respiratory Rate 18 Respiratory Depth Blood Pressure Blood Pressure [Left Arm] 138/94 Blood Pressure Mean Blood Pressure Mean [Left Arm] 108 Pulse Oximetry 100 Oxygen Delivery Method Room Air Sepsis Recent Fever Within 48 Hours Sepsis New/Unexplained Change in Mental Status Sepsis Action Taken by Nursing Constitutional: Vital signs reviewed. Eyes: Pupils are equal round reactive to light. Conjunctiva are noninjected. ENT: Pharynx is clear without erythema or exudate. Mucous membranes are moist. Neck supple without meningeal signs. Respiratory: Clear to auscultation bilaterally. Breath sounds are equal bila terally. Cardiovascular: Regular rate and rhythm. No rubs or gallops. GI: Soft, nondistended and nontender. Bowel sounds are present. Musculoskeletal: No peripheral edema. No lower extremity tenderness. Integumentary: No cyanosis. or jaundice. Neurologic: The patient is awake and alert. Cranial nerves II-XII are intact with dysesthesia to the face but not the scalp. Motor is 5 out of 5 all extremities. He is, however, stronger on the left side. Sensation is intact to light touch all extremities with dysesthesia to the right arm normal speech. No pronator drift. No limb ataxia. Gait favoring the right lower extremity. Psychiatric: Normal affect. Not anxious appearing. Course Administered Medications Discontinued Medications Glucose (Glucose 40% Gel 15 Gm Tube) 15 gm PO NOW STA Stop: 10/26/21 11:51 Last Admin: 10/26/21 11:55 Dose: 15 gm Documented by: [id number] Glucose (Glucose 40% Gel 15 Gm Tube) Confirm Administered Dose 15 gm PO .STK-MED ONE Stop: 10/26/21 11:52 Last Admin: 10/26/21 11:56 Dose: Not Given Documented by: [id number] Tenecteplase 22 mg/ Syringe 4.4 mls @ 52.8 mls/min IV NOW ONE; Protocol Stop: 10/26/21 12:46 Last Admin: 10/26/21 12:44 Dose: 52.8 mls/min Documented by: [id number] Cosigned by: [id number] Ioversol (Optiray 320 125ml) 120 ml IV ONCE ONE Stop: 10/26/21 12:11 Last Admin: 10/26/21 12:10 Dose: 120 ml Documented by: [id number] Sodium Chloride (Sodium Chloride 0.9% 10ml Flush) 20 ml IV NOW STA Stop: 10/26/21 12:36 Last Admin: 10/26/21 12:49 Dose: 20 ml Documented by: [id number] Critical Care Time Critical Care Time: Yes Total Critical Care Time: 45 I have personally spent approximately 45 minutes of critical care time in the direct management of this patient. This includes bedside care, interpretation of diagnostic studies, and testing, discussion with consultants, patient, and family members, and other required patient management activities. These minutes are in excess of all separately billable procedures. Medical Decision Making Differential Diagnosis CVA, TIA, intracranial hemorrhage, intracranial bleed, metabolic derangement, hypoglycemia Medical Records Attestation: I reviewed the patient's medical records. I did perform a limited focused review of portions of the patient's old chart on the electronic medical record. The patient has had no recent pertinent visits to this hospital. Home Medications Current Medication List: was personally reviewed by me Laboratory Data Result diagrams: 10/26/21 11:43 10/26/21 11:43 Lab Results 10/26/21 10/26/21 10/26/21 Range/Units 11:43 11:43 11:43 WBC 4.93 (4.8-10.8) K/uL RBC 5.13 (4.7-6.1) M/uL Hgb 16.3 (14.0-18.0) g/dL POC Hgb (14.0-18.0) g/dl Hct 45.0 (42-52) % POC Hct (42-52) % MCV 87.7 (80-100) fL MCH 31.8 (25-34) pg MCHC 36.2 H (32-36) g/dL RDW Std Deviation 39.2 (36.4-46.3) fL RDW Coeff of Geovanni 12.2 (11.5-14.5) % Plt Count 222 (130-400) K/uL MPV 11.6 H (7.4-10.4) fL PT 10.9 (9.0-12.0) Seconds INR 1.0 (0.9-1.1) APTT 26.9 (21.0-31.0) Seconds PTT Ratio 1.0 POC Sodium (135-144) mmol/L Sodium 140 (136-145) mmol/L POC Potassium (3.3-5.0) mmol/L Potassium 3.9 (3.5-5.1) mmol/L POC Chloride (101-112) mmol/L Chloride 105 (98-107) mmol/L Carbon Dioxide 29 (21-32) mmol/L POC Total CO2 (24-31) mmol/L Anion Gap 6 (3-11) POC Anion Gap (16-25) mmol/L POC BUN (7-18) mg/dl BUN 13 (6-23) mg/dl Creatinine 0.99 (0.6-1.4) mg/dl POC Creatinine (0.6-1.3) mg/dl Est Cr Clr Drug Dosing 130.4 ml/min Est GFR ( Amer) 118.0 ml/min Est GFR (Non-Af Amer) 101.8 ml/min BUN/Creatinine Ratio 13.1 (10-20) Glucose 60 L (70-99(Fasting)) mg/dl POC Glucose (70-99) mg/dl POC Glucose (other) (70-99) mg/dl Calcium 9.8 (8.5-10.1) mg/dl POC Ioniz Calcium Meli (1.12-1.32) mmol/l Magnesium 2.1 (1.7-2.4) mg/dl Total Bilirubin 0.9 (0.2-1.0) mg/dl AST 22 (13-39) U/L ALT 23 (7-52) U/L Alkaline Phosphatase 77 (34-104) U/L Total Protein 7.6 (6.0-8.3) gm/dl Albumin 4.6 (3.4-5.0) gm/dl Globulin 3.0 (2.5-4.0) gm/dl Albumin/Globulin Ratio 1.5 (0.9-2) SARS-CoV-2, RNA, NAAT (NEGATIVE) 10/26/21 10/26/21 10/26/21 Range/Units 11:48 11:51 11:59 WBC (4.8-10.8) K/uL RBC (4.7-6.1) M/uL Hgb (14.0-18.0) g/dL POC Hgb 15.3 (14.0-18.0) g/dl Hct (42-52) % POC Hct 45 (42-52) % MCV (80-100) fL MCH (25-34) pg MCHC (32-36) g/dL RDW Std Deviation (36.4-46.3) fL RDW Coeff of Geovanni (11.5-14.5) % Plt Count (130-400) K/uL MPV (7.4-10.4) fL PT (9.0-12.0) Seconds INR (0.9-1.1) APTT (21.0-31.0) Seconds PTT Ratio POC Sodium 142 (135-144) mmol/L Sodium (136-145) mmol/L POC Potassium 4.5 (3.3-5.0) mmol/L Potassium (3.5-5.1) mmol/L POC Chloride 103 (101-112) mmol/L Chloride (98-107) mmol/L Carbon Dioxide (21-32) mmol/L POC Total CO2 28 (24-31) mmol/L Anion Gap (3-11) POC Anion Gap 17.0 (16-25) mmol/L POC BUN 13 (7-18) mg/dl BUN (6-23) mg/dl Creatinine (0.6-1.4) mg/dl POC Creatinine 1.0 (0.6-1.3) mg/dl Est Cr Clr Drug Dosing ml/min Est GFR ( Amer) ml/min Est GFR (Non-Af Amer) ml/min BUN/Creatinine Ratio (10-20) Glucose (70-99(Fasting)) mg/dl POC Glucose 64 L* 82 (70-99) mg/dl POC Glucose (other) 69 L* (70-99) mg/dl Calcium (8.5-10.1) mg/dl POC Ioniz Calcium Meli 1.34 H (1.12-1.32) mmol/l Magnesium (1.7-2.4) mg/dl Total Bilirubin (0.2-1.0) mg/dl AST (13-39) U/L ALT (7-52) U/L Alkaline Phosphatase (34-104) U/L Total Protein (6.0-8.3) gm/dl Albumin (3.4-5.0) gm/dl Globulin (2.5-4.0) gm/dl Albumin/Globulin Ratio (0.9-2) SARS-CoV-2, RNA, NAAT (NEGATIVE) 10/26/21 10/26/21 Range/Units 12:47 12:50 WBC (4.8-10.8) K/uL RBC (4.7-6.1) M/uL Hgb (14.0-18.0) g/dL POC Hgb (14.0-18.0) g/dl Hct (42-52) % POC Hct (42-52) % MCV (80-100) fL MCH (25-34) pg MCHC (32-36) g/dL RDW Std Deviation (36.4-46.3) fL RDW Coeff of Geovanni (11.5-14.5) % Plt Count (130-400) K/uL MPV (7.4-10.4) fL PT (9.0-12.0) Seconds INR (0.9-1.1) APTT (21.0-31.0) Seconds PTT Ratio POC Sodium (135-144) mmol/L Sodium (136-145) mmol/L POC Potassium (3.3-5.0) mmol/L Potassium (3.5-5.1) mmol/L POC Chloride (101-112) mmol/L Chloride (98-107) mmol/L Carbon Dioxide (21-32) mmol/L POC Total CO2 (24-31) mmol/L Anion Gap (3-11) POC Anion Gap (16-25) mmol/L POC BUN (7-18) mg/dl BUN (6-23) mg/dl Creatinine (0.6-1.4) mg/dl POC Creatinine (0.6-1.3) mg/dl Est Cr Clr Drug Dosing ml/min Est GFR ( Amer) ml/min Est GFR (Non-Af Amer) ml/min BUN/Creatinine Ratio (10-20) Glucose (70-99(Fasting)) mg/dl POC Glucose 92 (70-99) mg/dl POC Glucose (other) (70-99) mg/dl Calcium (8.5-10.1) mg/dl POC Ioniz Calcium Meli (1.12-1.32) mmol/l Magnesium (1.7-2.4) mg/dl Total Bilirubin (0.2-1.0) mg/dl AST (13-39) U/L ALT (7-52) U/L Alkaline Phosphatase (34-104) U/L Total Protein (6.0-8.3) gm/dl Albumin (3.4-5.0) gm/dl Globulin (2.5-4.0) gm/dl Albumin/Globulin Ratio (0.9-2) SARS-CoV-2, RNA, NAAT NEGATIVE (NEGATIVE) Imaging Data Radiologist's Impression: Head CT 10/26/21 11:36 CT head/brain wo con CLINICAL HISTORY: 31 years-old Male with Stroke Alert. Acute strokelike symptoms TECHNIQUE: Multiple axial CT images of the head were obtained without contrast. A dose lowering technique was utilized adhering to the principles of ALARA. CT DOSE: 614.27 mGy.cm COMPARISON: None. FINDINGS: No acute intracranial hemorrhage, midline shift, intracranial mass, hydroceph alus, territorial ischemia or abnormal extra-axial collection. The calvarium is intact. The paranasal sinuses, mastoid air cells, and middle ear cavities are clear. IMPRESSION: No acute intracranial abnormality. ACT 112: Negative or not required by law. The above report was generated using voice recognition software. It may contain grammatical, syntax or spelling errors. Electronically signed by: Margarito Valentino M.D. 10/26/2021 11:45 AM Head CTA 10/26/21 11:51 CT angio neck with con, CT angio head w con CLINICAL HISTORY: 31 years-old Male with Stroke Like Symptoms. Acute strokelike symptoms COMPARISON STUDY: Head CT of same day at 11:38 AM TECHNIQUE: Following the IV administration of 120 mL of Optiray, CT angiogram of the head and neck was performed from the aortic arch to the skull apex. Images are reviewed in the axial, sagittal, and coronal planes. 3-D MIPS images are created and assessed. IV contrast was administered without complication. All measurements were calculated based on NASCET criteria. A dose lowering technique was utilized adhering to the principles of ALARA. CT DOSE: 516.11 mGy.cm FINDINGS: Three-vessel morphology of the thoracic aortic arch. There is patency of the innominate and imaged subclavian arteries. Normal and widely patent common and internal carotid arteries. The middle and anterior cerebral arteries are patent. Dominant left vertebral artery. The bilateral vertebral arteries are widely patent. The basilar and posterior cerebral arteries are patent. The ce rebral venous sinuses are patent. There is no abnormal intracranial enhancement. Lung apices are clear. Residual thymic tissue of the anterior mediastinum. Calcifications of the palatine tonsils. Straightening of the normal cervical lordosis without acute fracture. IMPRESSION:Unremarkable CTA of the head and neck. ACT 112: Negative or not required by law. The above report was generated using voice recognition software. It may contain grammatical, syntax or spelling errors. Electronically signed by: Margarito Valentino M.D. 10/26/2021 12:37 PM Neck CTA 10/26/21 11:51 CT angio neck with con, CT angio head w con CLINICAL HISTORY: 31 years-old Male with Stroke Like Symptoms. Acute strokelike symptoms COMPARISON STUDY: Head CT of same day at 11:38 AM TECHNIQUE: Following the IV administration of 120 mL of Optiray, CT angiogram of the head and neck was performed from the aortic arch to the skull apex. Images are reviewed in the axial, sagittal, and coronal planes. 3-D MIPS images are created and assessed. IV contrast was administered without complication. All measurements were calculated based on NASCET criteria. A dose lowering technique was utilized adhering to the principles of ALARA. CT DOSE: 516.11 mGy.cm FINDINGS: Three-vessel morphology of the thoracic aortic arch. There is patency of the innominate and imaged subclavian arteries. Normal and widely patent common and internal carotid arteries. The middle and anterior cerebral arteries are patent. Dominant left vertebral artery. The bilateral vertebral arteries are widely patent. The basilar and posterior cerebral arteries are patent. The cerebral venous sinuses are patent. There is no abnormal intracranial enhancement. Lung apices are clear. Residual thymic tissue of the anterior mediastinum. Ca lcifications of the palatine tonsils. Straightening of the normal cervical lordosis without acute fracture. IMPRESSION:Unremarkable CTA of the head and neck. ACT 112: Negative or not required by law. The above report was generated using voice recognition software. It may contain grammatical, syntax or spelling errors. Electronically signed by: Margarito Valentino M.D. 10/26/2021 12:37 PM Brain MRI 10/26/21 12:52 MR brain wo/w con HISTORY: 31 years-old Male right sided weakness/numbness/incoordination acute strokelike symptoms with right-sided weakness COMPARISON: CT head, CTA head and neck studies of same day TECHNIQUE: Multiplanar multisequence MRI of the brain was obtained both with and without the use of 8.5 cc Gadavist FINDINGS: There is a 1.5 cm ovoid focus of restricted diffusion within the left thalamus on image 13 series 5 which demonstrates normal T2/FLAIR signal. No additional restricted diffusion identified. The midline structures appear unremarkable. No acute intracranial hemorrhage, midline shift, abnormal extra axial collection, hydrocephalus or intracranial mass. No pathologic blooming artifact. No significant T2/flair signal abnormalities identified within the brain parenchyma. There are a few punctate foci of T2/FLAIR prolongation within the subcortical white matter, likely of no clinical significance. No abnormal enhancement. The cerebral venous sinuses and major arterial flow voids appear patent. Skull, orbits and soft tissues are unremarkable. IMPRESSION: 1. 1.5 cm acute left thalamic infarct. 2. No acute intracranial hemorrhage. 3. No abnormal enhancement. ACT 112: Negative or not required by law. The above report was generated using voice recognition software. It may contain grammatical, syntax or spelling errors. Electronically signed by: Margarito Valentino M.D. 10/26/2021 2:49 PM ECG Data Attestation: I personally reviewed and interpreted this ECG as follows: Indication: + other (Stroke symptoms) Rate (beats per minute): 90 Rhythm: + normal sinus ECG [place]: + Normal ECG ST segments: no ST elevation ECG Findings: + Q waves Comparison ECG Date: from (September 04, 2020) Change: no significant change Thrombolytics MDM Did the patient receive IV thrombolytics?: Yes Was there any delay in administration?: No MDM Narrative I did evaluate the patient as noted above. He is presenting with strokelike symptoms starting at 10:30 AM today. A stroke alert was called from triage. A CT of the head was ordered from triage. I did review the images myself as well as the radiology report. There is no acute process. On examination he has noticeable weakness in the right side of his body. He has difficulty walking and lack of coordination of his right sided limbs. He has difficulty writing. He also has dysesthesia to the right arm and face. His blood sugar was 64 taken from a venous sample. I did immediately give him oral glucose 15 g p.o. IV a ccess was established. I did place an order for continuous cardiac monitoring. The monitor showed normal sinus rhythm at a rate of 77 bpm. I did order and personally review the patient's 12-lead EKG as described above. Some Q waves are noted. He denies having any chest pain or shortness of breath. No dysrhythmias noted. I did discuss the case with with Dr. Licona of [facility]. I did discuss possible administration of thrombolytics with the patient and his . I did order a CT angiogram of the head and neck. I did review the images myself as well as the radiology report as described above.no acute abnormality was noted. When the patient came back from CT scan he had no resolution of his symptoms. I Did order and review the patient's blood work as noted in the electronic medical record. CBC and CMP are unremarkable except for a blood sugar of 60. The patient was evaluated by Dr. Hannah of stroke neurology. We both discussed risks and benefits of medication with the patient and his . He does state that he has occasional rectal bleeding due to internal hemorrhoids. He did have a colonoscopy which did not show any other pathology. He was warned that he could develop worsening bleeding from his internal hemorrhoids. After weighing the risks and benefits he and his decided to go ahead with treatment with thrombolytics. I did discuss with the patient and his that IV tenecteplase is off label for use and ischemic stroke but that it is widely used at this hospital as well as at [facility]. I did repeat a blood sugar which was 92. He has no resolution of his symptoms and so I did order IV tenecteplase which was admini stered by the nurse. I did reevaluated multiple times and he had no change in his symptoms. He did not report any headaches. I did order an MRI of the brain which later showed a left thalamic infarct. I did discuss case with the hospitalist and case work aide. Impression & Plan Infarction of left thalamus, Hypoglycemia Discharge Plan Visit Data Chief Complaint: Stroke Alert Stated Complaint: NUMB ON ENTIRE RIGHT SIDE ED Provider: Michael Conley Discharge Problem: Infarction of left thalamus, Hypoglycemia Patient Disposition: Admitted As Inpatient Discharge Instructions Interventions: ED Discharge Assessment Last Done: 10/26/21 14:31
[2021-10-26] MEDS ORDERED: OPTIRAY 320 125ml IV ONE (12:10)
[2021-10-26 12:16] LABS: iSTAT Hemoglobin 15.3 g/dl (14.0-18.0); iSTAT Ionized Calcium 1.34 mmol/l (1.12-1.32); iSTAT Potassium 4.5 mmol/L (3.3-5.0)
[2021-10-26 12:21] LABS: Hemoglobin 16.3 g/dL (14.0-18.0); Mean Corpuscular Hemoglobin 31.8 pg (25-34); Mean Corpuscular Hgb Conc 36.2 g/dL (32-36); Mean Corpuscular Volume 87.7 fL (80-100); Mean Platelet Volume 11.6 fL (7.4-10.4); Platelet Count 222 K/uL (130-400); RDW Coefficient of Variation 12.2 % (11.5-14.5); RDW Standard Deviation 39.2 fL (36.4-46.3); Red Blood Count 5.13 M/uL (4.7-6.1); White Blood Count 4.93 K/uL (4.8-10.8)
[2021-10-26 12:29] LABS: Partial Thromboplastin Time 26.9 Seconds (21.0-31.0); Prothrombin Time 10.9 Seconds (9.0-12.0)
[2021-10-26] MEDS ORDERED: SODIUM CHLORIDE 0.9% 10ML FLUSH IV STA (12:35)
[2021-10-26] MEDS ORDERED: STAT IV STA (12:35)
--- NOTE | 2021-10-26 12:39 | CT Scan Report ---
CT angio neck with con, CT angio head w con CLINICAL HISTORY: 31 years-old Male with Stroke Like Symptoms. Acute strokelike symptoms COMPARISON STUDY: Head CT of same day at 11:38 AM TECHNIQUE: Following the IV administration of 120 mL of Optiray, CT angiogram of the head and neck wa s performed from the aortic arch to the skull apex. Images are reviewed in the axial, sagittal, and c oronal planes. 3-D MIPS images are created and assessed. IV contrast was administered without complic ation. All measurements were calculated based on NASCET criteria. A dose lowering technique was util ized adhering to the principles of ALARA. CT DOSE: 516.11 mGy.cm FINDINGS: Three-vessel morphology of the thoracic aortic arch. There is patency of the innominate and imaged subclavian arteries. Normal and widely patent common and internal carotid arteries. The middl e and anterior cerebral arteries are patent. Dominant left vertebral artery. The bilateral vertebral arteries are widely patent. The basilar and posterior cerebral arteries are patent. The cerebral veno us sinuses are patent. There is no abnormal intracranial enhancement. Lung apices are clear. Residual thymic tissue of the anterior mediastinum. Calcifications of the [place] tonsils. Straightening of the normal cervical lordosis without acute fracture. IMPRESSION:Unremarkable CTA of the head and neck. ACT 112: Negative or not required by law. The above report was generated using voice recognition software. It may contain grammatical, syntax o r spelling errors. Electronically signed by: Margarito Valentino M.D. 10/26/2021 12:37 PM
[2021-10-26 12:43] LABS: Albumin Globulin Ratio 1.5 (0.9-2); Albumin Level 4.6 gm/dl (3.4-5.0); BUN Creatinine Ratio 13.1 (10-20); Bilirubin,Total 0.9 mg/dl (0.2-1.0); Calcium 9.8 mg/dl (8.5-10.1); Creatinine Clr Calc Pharmacy 130.4 ml/min; Est GFR (Non-African American) 101.8 ml/min; Magnesium 2.1 mg/dl (1.7-2.4); Potassium 3.9 mmol/L (3.5-5.1); Total Protein 7.6 gm/dl (6.0-8.3)
[2021-10-26] MEDS ORDERED: No Aspirin within 24hrs of THROMBOLYTIC-Stroke PO SCH (12:45)
[2021-10-26] MEDS ORDERED: TENECTEPLASE 22 MG in SYRINGE 0 ML IV ONE (12:45)
--- NOTE | 2021-10-26 13:04 | History & Physical Report ---
Date of Service October 26, 2021 Assessment & Plan (1) CVA (cerebral vascular accident): Plan: Presumed left-sided CVA with diffuse right-sided numbness and dyscoordination. No macrovascular occlusions on CTA head/neck. Stroke neurologist consulted in the ER -> TNK pushed at 12:45pm. - MRI brain pending - Telemetry - Restart ASA after 24 hours post-TNK - CT head at 24 hours to ensure no intracranial bleeding - Start statin - Echo w/ bubble study ordered - Neurology consulted - PT/OT consulted; CREDIT RISK MODELER evaluation deferred as patient and feel speech and swallow are both at baseline - A1c, lipids (2) Lightheadedness: Plan: Many episodes of lightheadedness and occasional syncope after his surgery. Had been improving, but had 3 episodes in the last 1 1/2 weeks per . Thought to be in part due to medications. - Continue lowered beta-michael dose (25 mg) - Monitor vitals and HR while admitted (3) S/P mitral valve repair: Plan: Mitral valve repair with annulopasty and Neochords on 08/09/[address] Luke Sánchez at [facility]. - Hold ASA for 24 hours as above - Continue beta-michael (4) Irritable bowel syndrome with diarrhea: Plan: Rarely uses his Questran per patient. - Continue home Questran PRN (5) DVT prophylaxis: Plan: SCDs - Hold heparin for 24 hours after TNK History of Present Illness Primary Care Provider: [facility] 31yo M w/ hx of mitral valve repair at [facility] in 08/2020 for mitral valve prolapse complicated with severe mitral regurgitation who presents with acute, right-sided CVA. Last known well at 10:30am when he was in the kitchen. He reports his right arm went numb, and he just felt like it was "asleep." However, the sensation spread to his right leg as well, and he felt very dizzy and as if he was about to pass out. He fell to the ground (no striking head and no LoC) and crawled to the bedroom to alert his . They wait some time to see if it would pass, but eventually came to the ER. He denies any chest pain, palpitations, n/v, shortness of breath, changes in speech, or other symptoms. Since his surgery, he has had episodes of seemingly vasovagal events where he gets dizzy and lightheaded and his has to assist him back to bed. He has lost consciousness at least once during these episodes. They were more common right after his mitral valve repair, but his reports he has had 3 in the last week and half which is an increase. He has recently had his metoprolol adjusted downward as it was thought medication might be playing a role. Allergies Allergy/AdvReac Type Severity Reaction Status Date / Time No Known Allergies Allergy Verified 07/22/21 15:46 Home Medications Medication Instructions Recorded Confirmed Type amoxicillin 500 mg capsule 2,000 mg PO .COMPLEX #30 cap 09/09/20 07/22/21 Rx aspirin 81 mg tablet,delayed 81 mg PO QAM 10/18/20 07/22/21 History release metoprolol succinate 50 mg 50 mg PO QPM 01/30/21 07/22/21 History tablet,extended release 24 hr cholestyramine (with sugar) 4 gram 4 g PO DAILY #60 ea 07/22/21 07/22/21 Rx powder for susp in a packet Past Med/Surg History Medical History Anxiety Astigmatism of left eye Irritable bowel syndrome Migraine Mitral regurgitation Mitral valve prolapse Nonsustained ventricular tachycardia Scoliosis Surgical History History of laparoscopic appendectomy (04/18/20) Laparoscopic Appendectomy Dr. Mancini 04/18/2020 History of mandibular surgery "upper jaw expanded" History of transesophageal echocardiography (DENY) (~06/08/20) History of wisdom tooth extraction S/P mitral valve repair (~08/2020) @ [facility]--follows with Dr. 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 Feels Safe at Home: Yes Assistive Devices: Glasses Review of Systems Review of Systems: All systems reviewed & are unremarkable except as noted in HPI & below Physical Exam Constitutional: WD/WN, vitals as above Eyes: EOM intact bilaterally; no conjunctival abnormality ENMT: external ear and nose normal, oropharynx normal Neck: trachea midline, no thyromegaly normal visual inspection Respiratory: normal respiratory effort, lungs clear to auscultation no respiratory distress Cardiovascular: RRR, no murmur, no edema Gastrointestinal (Abdomen): Inspection/Auscultation: abdomen normal to inspection; abdomen not distended Musculoskeletal: no cyanosis or clubbing, extremities motor strength 5/5 Skin: no rashes, warm and dry Neurologic: moves all extremities and awake Motor/Sensory: + sensory deficit (Reduced light touch sensation on right side) Coordination: + abnormal tewfzb-rq-elug test (Worse on right than left) and + abnormal bbim-ij-bxwk test (Worse on right than left) Psychiatric: Orientation: alert, oriented to person and cooperative Results & Data Results & Data ([facility] [place]) Vital Signs (Past 12 Hours) Vital Signs Temp Pulse Pulse Resp BP BP Pulse Ox 10/26/21 12:47 82 18 138/94 100 10/26/21 12:17 89 18 147/80 H 98 10/26/21 11:32 36.8 C 87 16 133/84 97 Code Status & VTE Plan VTE Prophylaxis Plan VTE Prophylaxis will be ordered: Yes PG Care Time/CCT Total # of Minutes Spent Total Time Spent with Patient: Total time spent is greater than 50% in coordination of care (as documented) at patient's floor/unit and/or counseling patient: Coding Level of Care Code 46716 Initial Inpt Care Lvl 3 Diagnoses CVA (cerebral vascular accident) I63.9 S/P mitral valve repair Z98.890 Irritable bowel syndrome with diarrhea K58.0 Lightheadedness R42 DVT prophylaxis Z29.9
--- NOTE | 2021-10-26 14:51 | Magnetic Resonance Report ---
MR brain wo/w con HISTORY: 31 years-old Male right sided weakness/numbness/incoordination acute strokelike symptoms wi th right-sided weakness COMPARISON: CT head, CTA head and neck studies of same day TECHNIQUE: Multiplanar multisequence MRI of the brain was obtained both with and without the use of 8 .5 cc Gadavist FINDINGS: There is a 1.5 cm ovoid focus of restricted diffusion within the left thalamus on image 13 series 5 w hich demonstrates normal T2/FLAIR signal. No additional restricted diffusion identified. The midline structures appear unremarkable. No acute intracranial hemorrhage, midline shift, abnormal extra axial collection, hydrocephalus or in tracranial mass. No pathologic blooming artifact. No significant T2/flair signal abnormalities identi fied within the brain parenchyma. There are a few punctate foci of T2/FLAIR prolongation within the s ubcortical white matter, likely of no clinical significance. No abnormal enhancement. The cerebral venous sinuses and major arterial flow voids appear patent. Skull, orbits and soft tissu es are unremarkable. IMPRESSION: 1. 1.5 cm acute left thalamic infarct. 2. No acute intracranial hemorrhage. 3. No abnormal enhancement. ACT 112: Negative or not required by law. The above report was generated using voice recognition software. It may contain grammatical, syntax o r spelling errors. Electronically signed by: Margarito Valentino M.D. 10/26/2021 2:49 PM
--- NOTE | 2021-10-26 15:32 | Critical Care Consultation ---
Date of Consultation October 26, 2021 Assessment & Plan (1) CVA (cerebral vascular accident): (2) S/P mitral valve repair: 31-year-old male with a past medical history of mitral valve surgery, irritable bowel syndrome and allergic rhinitis presenting to the hospital due to an acute stroke he was found to have a left thalamic infarct. He is status post TNKase. Continue TNKase protocol. We will obtain a CT head in 24 hours. Monitor neurochecks frequently. Maintain head of the bed elevated. Maintain euglycemia. Await neurology input. Echo to be obtained tomorrow. ? Embolic event from mitral valve. May need more extensive work-up such as DENY and MRA/MRV of the head and neck. We will continue to monitor patient in the intensive care unit. Thank you for allowing us to participate in the care of the patient. History of Present Illness Reason for Consultation: Stroke status post TNKase History of Present Illness 89-year-old male with history of mitral valve repair at the [facility] in August 2020 for mitral valve prolapse and regurgitation who presented to the ER due to numbness in his right arm around 10:30 AM. The sensation then moved to his leg and he felt dizzy. He came to the ER and underwent stroke protocol. CT head was negative for acute events. Patient ultimately received TNKase at 12:45 PM. MRI of his brain was completed and suggested a 1.5 cm acute left thalamic infarct. No intracranial hemorrhage. He is currently in the ICU with some improvement in symptoms. He remains hemodynamically stable. He still has some residual weakness in his right hand. He denies any headache. He denies chest pain or shortness of breath. He also notes some mild tingling and numbness in his right leg. Allergies Allergy/AdvReac Type Severity Reaction Status Date / Time No Known Allergies Allergy Verified 07/22/21 15:46 Home Medications Medication Instructions Recorded Confirmed Type amoxicillin 500 mg capsule 2,000 mg PO .COMPLEX #30 cap 09/09/20 10/26/21 Rx aspirin 81 mg tablet,delayed 81 mg PO QAM 10/18/20 10/26/21 History release metoprolol succinate 50 mg 25 mg PO QAM 01/30/21 10/26/21 History tablet,extended release 24 hr cholestyramine (with sugar) 4 gram 4 g PO DAILY #60 ea 07/22/21 10/26/21 Rx powder for susp in a packet Patient History Medical History Anxiety Astigmatism of left eye Irritable bowel syndrome Migraine Mitral regurgitation Mitral valve prolapse Nonsustained ventricular tachycardia Scoliosis Surgical History History of laparoscopic appendectomy (04/18/20) Laparoscopic Appendectomy Dr. Mancini 04/18/2020 History of mandibular surgery "upper jaw expanded" History of transesophageal echocardiography (DENY) (~06/08/20) History of wisdom tooth extraction S/P mitral valve repair (~08/2020) @ [facility]--follows with Dr. 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 Patient is in no apparent distress. Patient is well-developed. Eyes: Pupils are equal round and reactive to light. Conjunctivae are normal. Anicteric sclera. Ears nose, mouth and throat: Deferred. Neck: Trachea is midline. Visual inspection is normal. Respiratory: Clear to auscultation bilaterally. No use of accessory muscles. No significant clubbing noted. Cardiovascular: Regular rate and rhythm. No murmurs. No edema. Gastrointestinal: Normal bowel sounds, soft, nontender and nondistended. No hepatosplenomegaly noted. Musculoskeletal: No cyanosis. Patient is able to move all extremities. Skin: No rashes, warm dry and intact. Neurologic: Weakness in his right upper and right lower extremity. Psychiatric: Alert and oriented x3 with a euthymic affect. Results & Data Results & Data ([facility]) Vital Signs (Past 12 Hours) Vital Signs Temp Pulse Pulse Resp BP BP Pulse Ox 10/26/21 14:31 83 20 134/92 97 10/26/21 14:17 36.9 C 87 19 142/73 H 98 10/26/21 13:32 36.6 C 89 20 141/91 H 99 10/26/21 13:17 90 21 135/88 99 10/26/21 13:02 82 19 134/80 100 10/26/21 12:47 82 18 138/94 100 10/26/21 12:17 89 18 147/80 H 98 10/26/21 11:32 36.8 C 87 16 133/84 97 Coding Level of Care Code 07965 Inpt Consult Level 4 Diagnoses CVA (cerebral vascular accident) I63.9 S/P mitral valve repair Z98.890
[2021-10-26] MEDS ORDERED: ONDANSETRON INJ 2 MG/ML 2 ML VIAL IV PRN (16:07)
[2021-10-26] MEDS ORDERED: METOPROLOL SUCC 50MG EXT REL TAB PO SCH (21:00)
[2021-10-26] MEDS: ATORVASTATIN 40 MG TAB PO SCH (21:11)
[2021-10-26] MEDS: ACETAMINOPHEN 325 MG TAB PO PRN (22:55)
--- NOTE | 2021-10-26 23:03 | Communication Note ---
Date of Service: October 26, 2021 2245: Informed by nursing staff that patient is now complaining of a generalized headache w/p TNKase. Assessed patient at bedside. He is awake, alert, and o riented. He communicates his complaints well. He describes a generalized headache that he estimates started 90 minutes ago. He does report a history of frequent headaches in the past but reports that this one "feels different." Other than the complaint of general pain, he denies any new or recurrent symptoms of weakness, numbness, vision changes, or slurring of speech. He has no focal exam findings at this time. Order placed for STAT CT head/brain w/o contrast. He will receive PO Tylenol per previous orders. Review of CT imaging demonstrates no ICU or other acute findings. Discussed with patient at bedside. I have personally spent 20 minutes of critical care time in the direct management of this patient. This is a life/limb threatening event. This includes time spent evaluating patient, direct bedside care, chart review, placing orders, interpretation of diagnostic studies, discussion with consultants, patient, and family members, as well as other required patient management activities. This time is exclusive of all separately billable procedures, and teaching time and separate from and in addition to any other critical care service time. Coding Level of Care Code Critical Care ramon hellert'l 30 min Time Spent (min) 20
[2021-10-27 05:42] LABS: Hemoglobin 15.2 g/dL (14.0-18.0); Mean Corpuscular Hemoglobin 31.1 pg (25-34); Mean Corpuscular Hgb Conc 35.3 g/dL (32-36); Mean Corpuscular Volume 88.1 fL (80-100); Mean Platelet Volume 11.5 fL (7.4-10.4); Platelet Count 237 K/uL (130-400); RDW Coefficient of Variation 12.1 % (11.5-14.5); RDW Standard Deviation 38.7 fL (36.4-46.3); Red Blood Count 4.88 M/uL (4.7-6.1); White Blood Count 7.03 K/uL (4.8-10.8)
[2021-10-27 05:50] LABS: BUN Creatinine Ratio 13.9 (10-20); Calcium 9.2 mg/dl (8.5-10.1); Chol HDL Ratio 3.8 (0-5); Creatinine Clr Calc Pharmacy 127.8 ml/min; Est GFR (African American) 115.1 ml/min; Est GFR (Non-African American) 99.3 ml/min; Magnesium 2.1 mg/dl (1.7-2.4); Phosphorus 5.4 mg/dl (2.5-4.9); Potassium 3.8 mmol/L (3.5-5.1)
--- NOTE | 2021-10-27 08:48 | CT Scan Report ---
CT head/brain wo con CLINICAL HISTORY: mattson s/p TPA Technique: Contiguous axial CT images of the head were acquired from the base of the skull to the maida renzo without intravenous contrast administration. Images were viewed in brain, [facility]. Automated dose lowering techniques and/or adjustment according to patient size were utilized for this exam. Comparison: Comparison is made to CTA head 10/26/2021 Findings: The ventricles, basal cisterns, and cerebral sulci are normal. There is no acute intracranial hemorrh age or evidence of acute territorial infarction. Neither mass effect, shift of the midline structures , nor abnormal extra-axial fluid collections are shown. Imaged portions of the paranasal sinuses and mastoid air cells are clear. The orbits appear normal. There are no acute fractures of the calvaria or scalp swelling. Impression: No acute intracranial hemorrhage, no evidence of acute territorial infarction or other acute intracra nial disease process. ACT 112: Negative or not required by law. Electronically signed by: Bennett Davis M.D. 10/27/2021 8:47 AM
[2021-10-27] MEDS: METOPROLOL SUCC 25MG EXT REL TAB PO SCH (09:03)
[2021-10-27] MEDS: ACETAMINOPHEN 325 MG TAB PO PRN ×2 (09:03→22:39)
--- NOTE | 2021-10-27 09:55 | Critical Care Progress Note ---
Date of Service October 27, 2021 Assessment & Plan (1) CVA (cerebral vascular accident): (2) S/P mitral valve repair: Plan: 31-year-old male with a past medical history of mitral valve surgery, irritable bowel syndrome and allergic rhinitis presenting to the hospital due to an acute stroke he was found to have a left thalamic infarct. He is status post TNKase. Continue TNKase protocol. We will obtain a CT head this afternoon. If negative, can downgrade to med telemetry. Monitor neurochecks frequently. Maintain head of the bed elevated. Maintain euglycemia. Await neurology input. Echo to be obtained tomorrow. ? Embolic event from mitral valve. May need more extensive work-up such as DENY and MRA/MRV of the head and neck. PT/OT consults. Thank you for allowing us to participate in the care of the patient. Admission and Anticipated Discharge Date Admission Date: October 26, 2021 Subjective Patient with residual. Strength appears to be intact. He notes that he is having difficulty with writing with his right hand as he is right-hand dominant. He did have a headache last night and underwent a CT of his head which was n egative for acute findings. Review of Systems Review of Systems: All systems reviewed & are unremarkable except as noted in HPI & below Physical Exam Physical Exam: Constitutional: Patient appears to be of their stated age. Patient is in no apparent distress. Patient is well-developed. Eyes: Pupils are equal round and reactive to light. Conjunctivae are normal. Anicteric sclera. Ears nose, mouth and throat: Deferred. Neck: Trachea is midline. Visual inspection is normal. Respiratory: Clear to auscultation bilaterally. No use of accessory muscles. No significant clubbing noted. Cardiovascular: Regular rate and rhythm. No murmurs. No edema. Gastrointestinal: Normal bowel sounds, soft, nontender and nondistended. No hepatosplenomegaly noted. Musculoskeletal: No cyanosis. Patient is able to move all extremities. Skin: No rashes, warm dry and intact. Neurologic: No dysmetria seen. Strength 5 out of 5 in the upper and lower extremities. Decreased sensation of this right upper and right lower extremity. Psychiatric: Alert and oriented x3 with a euthymic affect. Results & Data Results & Data ([facility]) Vital Signs (Past 12 Hours) Vital Signs Temp Pulse Pulse Resp BP Pulse Ox 10/27/21 08:47 80 19 119/79 97 10/27/21 07:47 36.5 C 76 18 122/78 98 10/27/21 06:47 68 16 111/63 98 10/27/21 05:47 63 14 124/71 98 10/27/21 04:47 36.6 C 65 15 112/68 98 10/27/21 03:47 65 15 120/67 98 10/27/21 02:47 66 16 121/64 95 10/27/21 01:47 76 13 122/71 96 10/27/21 00:47 72 18 118/80 96 10/27/21 00:00 75 10/26/21 23:47 78 18 112/85 99 10/26/21 23:00 37.2 C 76 16 124/81 99 10/26/21 22:47 76 16 124/81 99 Coding Level of Care Code 37056 Subseq Hosp Care Lvl 2 Diagnoses CVA (cerebral vascular accident) I63.9 S/P mitral valve repair Z98.890
--- NOTE | 2021-10-27 10:15 | XCELERA ---
[id number]
--- NOTE | 2021-10-27 12:38 | CT Scan Report ---
CT head/brain wo con CLINICAL HISTORY: 24 h s/p TPA Technique: Contiguous axial CT images of the head were acquired from the base of the skull to the maida renzo without intravenous contrast administration. Images were viewed in brain, subdural and bone [facility]. Automated dose lowering techniques and/or adjustment according to patient size were utilized for this exam. Comparison: Comparison is made to CT head 10/26/2021 Findings: The ventricles, basal cisterns, and cerebral sulci are normal. There is no acute intracranial hemorrh age or evidence of acute territorial infarction. Neither mass effect, shift of the midline structures , nor abnormal extra-axial fluid collections are shown. Imaged portions of the paranasal sinuses and mastoid air cells are clear. The orbits appear normal. There are no acute fractures of the calvaria or scalp swelling. Impression: No acute abnormality, in particular no evidence of hemorrhage. ACT 112: Negative or not required by law. Electronically signed by: Bennett Davis M.D. 10/27/2021 12:37 PM
--- NOTE | 2021-10-27 14:32 | Hospitalist Progress Note ---
Date of Service October 27, 2021 Assessment & Plan (1) CVA (cerebral vascular accident): Plan: Presumed left-sided CVA with diffuse right-sided numbness and dyscoordination. No macrovascular occlusions on CTA head/neck. Stroke neurologist consulted in the ER -> TNK pushed at 12:45pm. - MRI brain showed 1.5 cm left thalamic stroke. - Telemetry w/o arrythmia so far. - Restart ASA after 24 hours post-TNK - CT head at 24 hours with no intracranial bleeding - Started statin - Echo w/ bubble study showed no interatrial shunt. Some shadowing around annuloplasty ring. -> Discussed with cardiology and cardiothoracic surgery from [facility] -> Plan to perform DENY tomorrow to better assess this area. - Neurology consulted - PT/OT consulted; STORE CUSTODIAN evaluation deferred as patient and feel speech and swallow are both at baseline - A1c pending - Lipids with LDL > 100 (2) Lightheadedness: Plan: Many episodes of lightheadedness and occasional syncope after his surgery. Had been improving, but had 3 episodes in the last 1 1/2 weeks per . Thought to be in part due to medications. - Continue lowered beta-michael dose (25 mg) - Monitor vitals and HR while admitted (3) S/P mitral valve repair: Plan: Mitral valve repair with annulopasty and Neochords on 08/09/[address] Luke Sánchez at [facility]. - Hold ASA for 24 hours as above - Continue beta-michael - Now sees Dr. Valeriy Pedroza (route delivery service driver) - Awaiting a call. (4) Irritable bowel syndrome with diarrhea: Plan: Rarely uses his Questran per patient. - Continue home Questran PRN (5) DVT prophylaxis: Plan: SCDs - Hold heparin for 24 hours after TNK Admission and Anticipated Discharge Date Admission Date: October 26, 2021 Subjective Doing well today. Headache from overnight is improving. Feels his deficits are improving as well. Reports no fevers/chills, chest pain, shortness of breath, abdominal pain, nausea, or vomiting. Physical Exam Constitutional: WD/WN, vitals as above Eyes: EOM intact bilaterally; no conjunctival abnormality ENMT: external ear and nose normal, oropharynx normal Neck: trachea midline, no thyromegaly normal visual inspection Respiratory: normal respiratory effort, lungs clear to auscultation no respiratory distress Cardiovascular: RRR, no murmur, no edema Gastrointestinal (Abdomen): Inspection/Auscultation: abdomen normal to inspection; abdomen not distended Musculoskeletal: no cyanosis or clubbing, extremities motor strength 5/5 Skin: no rashes, warm and dry Neurologic: moves all extremities and awake Motor/Sensory: + sensory deficit (Reduced light touch sensation on right side) Coordination: + abnormal tefang-rt-citm test (Worse on right than left) and + abnormal lcky-zz-fing test (Worse on right than left) Psychiatric: Orientation: alert, oriented to person and cooperative Results & Data Results & Data ([facility]) Vital Signs (Past 12 Hours) Vital Signs Temp Pulse Pulse Resp BP Pulse Ox 10/27/21 12:47 79 20 99/75 L 99 10/27/21 11:47 36.6 C 90 21 126/83 97 10/27/21 10:47 73 18 126/80 99 10/27/21 09:47 77 17 116/81 100 10/27/21 08:47 80 19 119/79 97 10/27/21 07:47 36.5 C 76 18 122/78 98 10/27/21 07:10 77 10/27/21 06:47 68 16 111/63 98 10/27/21 05:47 63 14 124/71 98 10/27/21 04:47 36.6 C 65 15 112/68 98 10/27/21 03:47 65 15 120/67 98 10/27/21 02:47 66 16 121/64 95 PG Care Time/CCT Total # of Minutes Spent Total Time Spent with Patient: Total time spent is greater than 50% in coordination of care (as documented) at patient's floor/unit and/or counseling patient: Coding Level of Care Code 30452 Subseq Hosp Care Lvl 3 Diagnoses CVA (cerebral vascular accident) I63.9 Lightheadedness R42 S/P mitral valve repair Z98.890 Irritable bowel syndrome with diarrhea K58.0 DVT prophylaxis Z29.9
--- NOTE | 2021-10-27 19:46 | Electrocardiogram Report ---
Test Reason : Blood Pressure : / mmHG Vent. Rate : 090 BPM Atrial Rate : 090 BPM P-R Int : 164 ms QRS Dur : 102 ms QT Int : 354 ms P-R-T Axes : 053 056 063 degrees QTc Int : 433 ms Poor data quality, interpretation may be adversely affected Normal sinus rhythm Anteroseptal infarct , age undetermined Abnormal ECG No previous ECGs available Confirmed by Corona Fofana ([id number]) on 10/27/2021 7:46:12 PM Referred By: Confirmed By:Corona Fofana
[2021-10-27] MEDS: ATORVASTATIN 40 MG TAB PO SCH (22:18)
[2021-10-28 07:39] LABS: Estimated Average Glucose 91 mg/dl; Hemoglobin A1C 4.8 % (4.5-5.6)
--- NOTE | 2021-10-28 08:31 | Neurology Consultation ---
Date of Consultation October 28, 2021 Assessment & Plan (1) Infarction of left thalamus: (2) S/P mitral valve repair: 31-year-old male presenting with an acute ischemic 1.5 cm left thalamic infarct characterized by right-sided numbness and weakness, considerably improved after administration of TNKase. No prior history of stroke, TIA, or thromboembolic disease. However, patient does have a history of mitral valve repair at the [facility] last August. He did inform me that he has been experiencing occasional lightheaded episodes ever since this procedure and he has been following with [facility] cardiology and underwent a 30-day monitor last November that was negative for complex ventricular arrhythmia but did reveal PVCs and occasional PACs. He has no other stroke risk factors such as hypertension, hyperlipidemia or diabetes. He is a non-smoker. He does have a history of occasional migraine although he has never had a complicated migraine episode and his current presentation is not consistent with his typical migrainous events, which are again rare. In looking into the issue further, small percentage of patients who undergo mitral valve repair may experience atrial fibrillation. It is possible that he may be experiencing episodes of A. fib increasing his risk of cardioembolic stroke. Patient scheduled for transesophageal echocardiogram. Should proceed with this test. Would also recommend hypercoagulable lab evaluation. Would also recommend completion of up-to-date 30-day mobile cardiac outpatient telemetry. May also need to consider an implantable loop recorder, should follow-up with cardiology regarding his recommendations as well. Would also recommend switching patient's antiplatelet regimen from daily low- dose aspirin to clopidogrel 75 mg/day and less of an indication for an anticoagulant such as atrial fibrillation is identified. Patient's neurologic deficits appear to be extremely minimal this morning, I doubt he will require inpatient rehabilitation. Going forward, in light of his history of recent left thalamic stroke, I would need to recommend that he avoid further use of triptans for acute migraine treatment. 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 He is right-handed. He complained of difficulty with handwriting as well as some difficulty with standing and walking. He also experienced a low-grade headache. No vision disturbance. No significant speech difficulty. Again, his symptoms were fairly sudden onset and were persistent. Patient did have a telestroke consultation with a specialist at [facility], and given his clinical presentation and initial imaging evaluation, he was administered TNKase for suspected left hemispheric stroke. Past medical history notable for surgical repair mitral valve prolapse and regurgitation at the [facility] August 09, 2020. He has been following with [facility] cardiology recently, Dr. Panda. Patient does inform me that ever since undergoing this surgical repair, he has been experiencing brief episodes of lightheadedness. He did a 30-day event monitor last November which found frequent PVCs and occasional PACs, no complex ventricular arrhythmia. He has been on daily low-dose aspirin. He is also prescribed metoprolol. He endorses a history of rare migraine, current symptoms are quite different from his typical migraines, however. He has used Imitrex in the past, but none recently. This morning, he endorses a subtle feeling of weakness affecting the right arm and leg, no speech difficulty, no change in swallowing. He admits that he feels nearly normal. Allergies Allergy/AdvReac Type Severity Reaction Status Date / Time No Known Allergies Allergy Verified 07/22/21 15:46 Home Medications Medication Instructions Recorded Confirmed Type amoxicillin 500 mg capsule 2,000 mg PO .COMPLEX #30 cap 09/09/20 10/26/21 Rx aspirin 81 mg tablet,delayed 81 mg PO QAM 10/18/20 10/26/21 History release metoprolol succinate 50 mg 25 mg PO QAM 01/30/21 10/26/21 History tablet,extended release 24 hr cholestyramine (with sugar) 4 gram 4 g PO DAILY #60 ea 07/22/21 10/26/21 Rx powder for susp in a packet Patient History Medical History Anxiety Astigmatism of left eye Irritable bowel syndrome Migraine Mitral regurgitation Mitral valve prolapse Nonsustained ventricular tachycardia Scoliosis Surgical History History of laparoscopic appendectomy (04/18/20) Laparoscopic Appendectomy Dr. Mancini 04/18/2020 History of mandibular surgery "upper jaw expanded" History of transesophageal echocardiography (DENY) (~06/08/20) History of wisdom tooth extraction S/P mitral valve repair (~08/2020) @ [facility]--follows with Dr. 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 Feels Safe at Home: Yes Assistive Devices: None Review of Systems Constitutional: no fever and no chills Eyes: no blind spots and no diplopia Ear, Nose, Mouth, Throat: no ear pain and no hearing loss Respiratory: no cough and no dyspnea Cardiovascular: no chest pain and no palpitations Gastrointestinal: no constipation and no diarrhea/loose stools Genitourinary: no urinary incontinence or no urinary urgency Musculoskeletal: no muscle weakness and no muscle atrophy Integumentary: no rash and no lesions Neurologic: as per Subjective / HPI Psychiatric: no behavioral changes, no depression, no abnormal sleep pattern and no anxiety Hematologic / Lymphatic: no easy bruising and no lymphadenopathy Exam (Neuro) Constitutional: well developed and well nourished; no acute distress Eyes: normal visual poon by confrontation, PERRL, normal accommodation and EOM intact bilaterally; no fundoscopic abnormality, no nystagmus and no papilledema Cardiovascular: Vessels: normal carotid upstroke; no carotid bruit Neurologic: Oriented to:: Person, Place and Time Memory: Short Term Intact and Remote Intact Attention: Span Intact and Concentration Intact Language: Naming Objects and Repeating Phrases Speech Fluency: negative Dysarthria Speech Aphasia: negative Aphasia Fund of Knowledge: Current Events, Past History and Vocabulary Cranial Nerves: Normal II (Visual poon full to confrontation, visual acuity normal), III, IV, (Pupils equal round reactive to light and accommodation, eye movements normal), VII (There is no facial droop or weakness), VIII (Hearing intact), IX, X (Palate elevates to midline), XI (Shoulder shrug intact) and XII (Tongue protrudes to midline); Abnorm V (Subtle difference in facial sensation comparing left to right.) Motor Strength: Normal Lower Extremities and Normal Upper Extremities; negative Pronator Drift Motor Tone: Normal Lower Extremities and Normal Upper Extremities Muscle Bulk/Involuntary Movements: No Involuntary Movements; negative Muscle Atrophy Sensation: Light Touch Intact, Pain/Temperature Intact, Vibration Intact and Proprioception Intact Coordination: Normal and Heel-Azul Abnormal Laterality: Right; negative Limited Balance, Dysdiadochokinesia or Finger-Nose Abnormal Deep Tendon Reflexes: Rt Triceps: 2+, Lt Triceps: 2+, Rt Biceps: 2+, Lt Biceps: 2+, Rt Brachioradialis: 2+, Lt Brachioradialis: 2+, Rt Patellar: 2+, Lt Patellar: 2+, Rt Ankle: 2+ and Lt A nkle: 2+ Special Tests: negative Babinski Present Details: Gait not tested in the context of patient's current neurological status. Results & Data ([facility]) Vital Signs (Past 12 Hours) Vital Signs Temp Pulse Resp BP Pulse Ox 10/28/21 06:43 36.7 C 81 18 104/67 97 10/28/21 06:30 72 10/28/21 06:09 77 10/28/21 02:51 36.7 C 90 18 100/60 96 Laboratory Results WBC 7.03, hemoglobin 15.2, hematocrit 43.0, MCV 88.1, platelet count 237, sodium 138, potassium 3.8, BUN 14, creatinine 1.01, glucose 89, hemoglobin A1c 4.8, calcium 9.2, magnesium 2.1, triglycerides 99, cholesterol 175, LDL 109, VLDL 20, HDL [address] angiography of the head and neck completed at the time of presentation were unremarkable. Follow-up brain MRI revealed a 1.5 cm acute left thalamic infarct, no hemorrhage, no abnormal enhancement. I reviewed the images as well as the radiologist's interpretation of this test and agree. Patient had 2 additional follow-up head CT's, no evidence of hemorrhage, status post administration of TNKase. Electrocardiogram revealed a normal sinus rhythm, anteroseptal infarct, age undetermined, 90 bpm. An echocardiogram completed yesterday was negative for cardioembolic source, normal left ventricular systolic function, no interatrial shunt with injection of contrast, no specific abnormality of the mitral valve noted, trace mitral regurgitation. Left atrium normal size. Coding Level of Care Code 77545 Initial In Care Lvl 3 Diagnoses Infarction of left thalamus I63.9 S/P mitral valve repair Z98.890
[2021-10-28] MEDS: METOPROLOL SUCC 25MG EXT REL TAB PO SCH (08:57)
[2021-10-28] MEDS ORDERED: ASPIRIN 81 MG ECTAB PO SCH (09:00)
[2021-10-28] MEDS ORDERED: PROPOFOL IV EMULSION 10 MG/ML 20 ML VIAL IV ONE (12:24)
--- NOTE | 2021-10-28 12:26 | Anesthesiology Consultation ---
Date of Service October 28, 2021 Assessment & Plan (1) Encounter for pre-operative examination: Chart Review Chart Review: Acceptable Risk for Surgery and Patient NOT seen in Pre Admission Testing Consults Requested none History Surgery Operation Date: 10/28/21 12:30 Proposed Procedures p Transesophageal Echo w/Anesthesia - Nishant Brody MD Height/Weight Height: 6 ft 3 in Weight: 85.2 kg Allergies Allergy/AdvReac Type Severity Reaction Status Date / Time No Known Allergies Allergy Verified 07/22/21 15:46 Medications Home Medications Medication Instructions Recorded Confirmed Last Taken amoxicillin 500 mg capsule 2,000 mg PO .COMPLEX #30 cap 09/09/20 10/26/21 02/05/21 aspirin 81 mg tablet,delayed 81 mg PO QAM 10/18/20 10/26/21 10/26/21 08:00 release metoprolol succinate 50 mg 25 mg PO QAM 01/30/21 10/26/21 10/26/21 08:00 tablet,extended release 24 hr cholestyramine (with sugar) 4 gram 4 g PO DAILY #60 ea 07/22/21 10/26/21 Unknown powder for susp in a packet Active Medications Generic Name Dose Route Start Last Admin Trade Name Freq PRN Reason Stop Dose Admin Acetaminophen 650 mg 10/26/21 16:07 10/27/21 22:39 Acetaminophen 325 Mg Tab PO 11/25/21 16:06 650 mg Q4H PRN Administration pain/fever Aspirin 81 mg 10/28/21 09:00 10/28/21 08:56 Aspirin 81 Mg Ectab PO 11/27/21 08:59 81 mg QAM JULIANN Administration Atorvastatin Calcium 80 mg 10/26/21 21:00 10/27/21 22:18 Atorvastatin 40 Mg Tab PO 11/25/21 20:59 80 mg HS JULIANN Administration Metoprolol Succinate 25 mg 10/27/21 09:00 10/28/21 08:57 Metoprolol Succ 25mg Ext Rel Tab PO 11/26/21 08:59 25 mg QAM JULIANN Administration Past Medical History Medical History Anxiety Astigmatism of left eye Irritable bowel syndrome Migraine Mitral regurgitation Mitral valve prolapse Nonsustained ventricular tachycardia Scoliosis Past Family History Family History Other No family history of adverse response to anesthesia Denies family history of Crohn's disease Ulcerative colitis Past Surgical History Surgical History History of laparoscopic appendectomy (04/18/20) Laparoscopic Appendectomy Dr. Mancini 04/18/2020 History of mandibular surgery "upper jaw expanded" History of transesophageal echocardiography (DENY) (~06/08/20) History of wisdom tooth extraction S/P mitral valve repair (~08/2020) @ [facility]--follows with Dr. Panda Social History Smoking Status: Never smoker tobacco type: cigarettes Hx Alcohol Use: Yes Alcohol type: beer alcohol intake frequency: a few times a week Hx Substance Use: Yes substance use type: marijuana Last Used Substance: Days (ago) Last Used Substance Other:: 1 mo ago Physical Exam Vital Signs Last Vital Signs Temp 98.1 F 10/28/21 10:39 Pulse 71 10/28/21 10:39 Resp 19 10/28/21 10:39 BP 114/68 10/28/21 10:39 Pulse Ox 98 10/28/21 10:39 Testing Laboratory Results 10/27/21 05:08 10/27/21 05:08 PT 10.9 Seconds (9.0-12.0) 10/26/21 11:43 INR 1.0 (0.9-1.1) 10/26/21 11:43 APTT 26.9 Seconds (21.0-31.0) 10/26/21 11:43 Hemoglobin A1c 4.8 % (4.5-5.6) 10/27/21 05:08
[2021-10-28] MEDS ORDERED: BENZOCAINE/TETRACAIN/BUTAM 50 APPLN/5 GM CAN EXT ONE (12:31)
--- NOTE | 2021-10-28 13:00 | Anesthesiology Progress Note ---
Date of Service October 28, 2021 Anesthesia Post Procedure Vital Signs Vital Signs: Temp Pulse Pulse Resp BP BP Pulse Ox 10/28/21 12:28 82 18 108/67 100 10/28/21 10:39 98.1 F 71 19 114/68 98 10/28/21 08:57 76 112/74 10/28/21 08:18 80 106/58 L 10/28/21 06:43 98.1 F 81 18 104/67 97 10/28/21 06:30 72 10/28/21 06:09 77 10/28/21 02:51 98.1 F 90 18 100/60 96 10/27/21 20:00 98.2 F 77 18 101/64 96 10/27/21 18:50 80 10/27/21 16:00 81 124/84 Transfer of Care Handoff Completed per policy Notes Mental Status: alert / awake / arousable and participated in evaluation Patient Amnestic to Procedure: Yes Nausea / Vomiting: adequately controlled Pain: adequately controlled Airway Patency, RR, SpO2: stable & adequate BP & HR: stable & adequate Hydration State: stable & adequate Anesthetic Complications: no major complications apparent and Pt Satisfied with anesthetic care
--- NOTE | 2021-10-28 14:34 | XCELERA ---
[id number]
--- NOTE | 2021-10-28 15:27 | Discharge Summary ---
Date of Service October 28, 2021 Admission HPI Per Admitting Provider 31yo M w/ hx of mitral valve repair at [facility] in 08/2020 for mitral valve prolapse complicated with severe mitral regurgitation who presents with acute, right-sided CVA. Last known well at 10:30am when he was in the kitchen. He reports his right arm went numb, and he just felt like it was "asleep." However, the sensation spread to his right leg as well, and he felt very dizzy and as if he was about to pass out. He fell to the ground (no striking head and no LoC) and crawled to the bedroom to alert his . They wait some time to see if it would pass, but eventually came to the ER. He denies any chest pain, palpitations, n/v, shortness of breath, changes in speech, or other symptoms. Since his surgery, he has had episodes of seemingly vasovagal events where he gets dizzy and lightheaded and his has to assist him back to bed. He has lost consciousness at least once during these episodes. They were more common right after his mitral valve repair, but his reports he has had 3 in the last week and half which is an increase. He has recently had his metoprolol adjusted downward as it was thought medication might be playing a role. Principal Diagnosis Left thalamic stroke Discharge Exam Constitutional WD/WN, vitals as above Eyes EOM intact bilaterally; no conjunctival abnormality ENMT external ear and nose normal, oropharynx normal Neck trachea midline, no thyromegaly normal visual inspection Respiratory normal respiratory effort, lungs clear to auscultation no respiratory distress Cardiovascular RRR, no murmur, no edema Gastrointestinal (Abdomen) Inspection/Auscultation: abdomen normal to inspection; abdomen not distended Musculoskeletal no cyanosis or clubbing, extremities motor strength 5/5 Skin no rashes, warm and dry Neurologic moves all extremities and awake Motor/Sensory: + sensory deficit (Reduced light touch sensation on right side) Coordination: + abnormal ykigsi-ti-zsrv test (Worse on right than left) and + abnormal kmlh-pn-dyob test (Worse on right than left) Psychiatric Orientation: alert, oriented to person and cooperative Discharge Data Allergies Allergy/AdvReac Type Severity Reaction Status Date / Time No Known Allergies Allergy Verified 07/22/21 15:46 Consultations 10/26/21 12:54 ED Decision to Admit Stat 06/25/22 16:07 Consult Substation Wireman Routine Consult Neurology Routine Procedures Performed Operation Date: 10/28/21 12:30 Actual Procedures p Echo Transesophageal - Nishant Brody MD s Echo Doppler Complete - Nishant Brody MD s Echo Color Flow - Nishant Brody MD Ordered Studies 10/26/21 11:36 CT head/brain wo con Stat 10/26/21 11:51 CT angio head w con Stat CT angio neck with con Stat 10/26/21 12:52 MR brain wo/w con Stat 10/26/21 22:54 CT head/brain wo con Stat 10/27/21 12:00 CT head/brain wo con Routine Hospital Course (1) CVA (cerebral vascular accident): Presumed left-sided CVA with diffuse right-sided numbness and dyscoordination. No macrovascular occlusions on CTA head/neck. Stroke neurologist consulted in the ER -> TNK pushed at 12:45pm. - MRI brain showed 1.5 cm left thalamic stroke. - Telemetry w/o arrythmia so far. - Restarted ASA after 24 hours post-TNK - CT head at 24 hours with no intracranial bleeding - Started atorvastatin 80 mg HS - Echo w/ bubble study showed no interatrial shunt. Some shadowing around annuloplasty ring. DENY on 10/28 showed no thrombus, no vegetations, and good function of repair. - Neurology consulted - PT/OT consulted - Minimal residual deficits. PT/OT o/p script given. - A1c was 4.8% - Lipids with LDL > 100 - Per CHANCE trial, discharged on ASA/Plavix x 3 weeks, then switch to Plavix only. Hypercoagulable work-up ordered and pending at discharge. Plan to f/u with [facility]. flange machine operator helping arrange visit. - He has a [employer] Scanwatch which has EKG function. No episodes of afib so far. Encouraged to wear it diligently. (2) Lightheadedness: Many episodes of lightheadedness and occasional syncope after his surgery. Had been improving, but had 3 episodes in the last 1 1/2 weeks per . Thought to be in part due to medications. - Continue lowered beta-michael dose (25 mg) - Monitor vitals and HR while admitted - Stable. (3) S/P mitral valve repair: Mitral valve repair with annulopasty and Neochords on 08/09/[address] Luke Sánchez at [facility]. - Hold ASA for 24 hours as above; restarted on ASA/Plavix. - Continue beta-michael - Case discussed with Dr. Valeriy Pedroza (technical publications writer) - Agrees with above plan. Will see him as normal f/u. (4) Irritable bowel syndrome with diarrhea: Rarely uses his Questran per patient. - Continue home Questran PRN (5) DVT prophylaxis: SCDs - Held heparin for 24 hours after TNK; now discharged. Total Time Total Time Spent Total Time Spent (In Minutes): 35 Discharge Plan Discharge Items Patient Disposition: Home - Self-Care Reason For Visit: CVA Discharge Diagnosis: Stroke Activity: Resume your previous activity Lifting: No more than 10 pounds Lifting Comment: until cleared by neurology. Non-emergency contact: Primary Care Provider, Security Architect and Neurologist Call non-emergency contact if: your symptoms worsen Follow-up/Referrals: Darin Mantilla MD [Physician] - (Please see Dr. Mantilla or an associate in his office in 2-3 weeks.) [facility] [Primary Care Provider] - (PLEASE CALL [facility] TO SCHEDULE A DISCHARGE FOLLOW-UP APPOINTMENT WITHIN 7-10 DAYS.) Diet: Heart Healthy Addtl Attending Provider Instructions: Mr. Dorsey, You were admitted to the hospital with a left thalamic stroke. We initially thought this was due to an embolic event with a clot going from your heart to your brain. Mostly we felt this way because it is just very rare for a younger person such as yourself to have a stroke. We thoroughly checked your heart, and we do not see any indication of a blood clot near the mitral valve (or elsewhere). Further, there is no connection between the upper chambers of your heart (called a PFO) that could allow a blood clot from your leg or elsewhere to go to your brain (called a paradoxical embolism). Finally, you wear a watch (the [employer] Scanwatch) that should have alerted you if you had any episodes of atrial fibrillation which can allow blood clots to form in the heart. This would lead us to believe the stroke was a thrombotic event which is when a very small blood vessel in brain has a plaque rupture which causes the blood flow to be interrupted in that part of the brain. This is the most common kind of stroke in older folks, but less common in people your age. We have run an extensive set of tests for reasons you may have had a stroke. We have a "hypercoagulable" panel sent out which looks at genetic and acquired reasons someone's blood may be more prone to clotting. We should have the results of those tests done in about 1 week, and you can see Dr. Mantilla or your PCP for those results. In the meantime, we are adjusting your medications to help reduce the chances of this happening. We will start you on Plavix (clopidogrel) which is an anti- platelet agent that is slightly stronger than aspirin. You will take aspirin and Plavix for 3 weeks, then just take the Plavix after that. Switch to just Plavix on Thursday, November 18. In addition, we started you on atorvastatin which can help lower cholesterol levels and stabilize any plaques that have formed. The [facility]'s number is [phone]. Feel free to call yourselves. Our Nurse Navigator will also follow up with you to ensure you get appropriate follow-up and that we complete any needed paperwork. Pending Studies at Discharge: Yes Studies:: Hypercoagulable work-up Stand-Alone Forms: [facility], Work/School Release, Smoking Cessation Medications and DC Order Prescriptions: New clopidogrel [Plavix] 75 mg tablet 75 mg PO DAILY Qty: 30 RF: 0 atorvastatin 80 mg tablet 80 mg PO HS Qty: 30 RF: 0 Continued aspirin 81 mg tablet,delayed release (DR/EC) 81 mg PO QAM RF: 0 cholestyramine (with sugar) 4 gram powder in packet 4 g PO DAILY Qty: 60 RF: 2 amoxicillin 500 mg capsule 2,000 mg PO .COMPLEX Qty: 30 RF: 1 metoprolol succinate 50 mg tablet extended release 24 hr 25 mg PO QAM RF: 0 Discharge Orders: Discharge Order (Routine); Ordered 10/28/21 Ordered By: Alex Kennedy Admission Data Admit Date/Time: 10/26/21 13:01 Attending Provider: Alex Kennedy Admit Provider: Alex Kennedy Primary Care Provider: [facility] Other Providers: Alex Kennedy ; Eliceo Fry ; Sunil Lee Other Interventions: Discharge Summary Assessment (RN) Last Done: 10/28/21 15:10 Coding Level of Care Code D/C DAY MANAGEMENT >30 MINS Diagnoses CVA (cerebral vascular accident) I63.9 Lightheadedness R42 S/P mitral valve repair Z98.890 Irritable bowel syndrome with diarrhea K58.0 DVT prophylaxis Z29.9
[2021-10-31 15:41] LABS: B2 Glycoprotein IgG <2.0 U/mL (<20.0); B2 Glycoprotein IgM <2.0 U/mL (<20.0)
[2021-11-01 01:07] LABS: Anti Cardiolipin Ab IgG <2.0 GPL-U/mL; Anti Cardiolipin Ab IgM <2.0 MPL-U/mL; Anti-Thrombin III Activity 114 % normal (80-135); PTT LA Screen 37 sec (<=40); Protein S Functional(Activity) 102 % (70-150)
== END 2021-10-28 16:44 | disposition home or self-care (01) | DRG 62 ==
LOC: ED 11:27 → 1E 13:01 → 2W 10-27 18:36